=== PATIENT | male | born 1940 | race Caucasian/White ===

== ENCOUNTER 2018-09-08 17:24 | Emergency (ER) | payer OTHER ==
[~2018-09-08] VITALS: Ht 175.3 cm; Wt 83.5 kg
[2018-09-08] MEDS ORDERED: VITAMIN D1000 UNI1 PO (17:54)
[2018-09-08] MEDS ORDERED: ASPIR 8181 MG PO (17:54)
[2018-09-08] MEDS ORDERED: IBUPROFEN 600600 M1 PO (17:55)
[2018-09-08] MEDS ORDERED: TYLENOL EXTRA500 MG PO (17:55)
[2018-09-08 22:00] VITALS: BP 145/86
== END 2018-09-08 22:26 | disposition home or self-care (01) ==
LOC: ER 17:24
DX: S01.81XA Laceration without foreign body of other part of head, initial encounter (principal); W01.0XXA Fall on same level from slipping, tripping and stumbling without subsequent striking against object, initial encounter; Y93.89 Activity, other specified; Y92.89 Other specified places as the place of occurrence of the external cause; Y99.8 Other external cause status

== ENCOUNTER 2019-02-10 07:46 | Emergency (ER) | payer OTHER ==
[~2019-02-10] VITALS: Ht 170.2 cm; Wt 77.1 kg
[~2019-02-10 07:46] MED LIST: ASPIR 8181 MG PO; IBUPROFEN 600600 M1 PO; TYLENOL EXTRA500 MG PO; VITAMIN D1000 UNI1 PO
[2019-02-10 08:57] VITALS: BP 99/69
== END 2019-02-10 09:14 | disposition home or self-care (01) ==
LOC: ER 07:46
DX: S01.112A Laceration without foreign body of left eyelid and periocular area, initial encounter (principal); S61.412A Laceration without foreign body of left hand, initial encounter; S09.8XXA Other specified injuries of head, initial encounter; W01.0XXA Fall on same level from slipping, tripping and stumbling without subsequent striking against object, initial encounter; Y93.01 Activity, walking, marching and hiking; Y92.89 Other specified places as the place of occurrence of the external cause; Y99.8 Other external cause status

== ENCOUNTER 2019-09-29 11:06 | Emergency (ER) | payer OTHER ==
[~2019-09-29] VITALS: Ht 172.7 cm; Wt 74.8 kg
[2019-09-29 12:00] LABS: ABSOLUTE NEUTROPHILS 5.6 thou/uL (1.4-8.2); BASOPHILS 1.4 % (0.0-2.0); EOSINOPHILS 1.2 % (0.0-3.0); HEMOGLOBIN 12.7 gm/dL (14.0-18.0); LYMPHOCYTES 16.1 % (24.0-44.0); MCH 35.5 pg (26.0-34.0); MCHC 34.2 g/dL (28.0-37.0); MCV 103.8 fL (80.0-100.0); MONOCYTES 8.6 % (1.0-8.0); PLATELET COUNT 286 thou/uL (150-400); POLYS 72.7 % (36.0-66.0); RBC 3.56 mil/uL (4.50-6.00); RDW 14.2 % (10.5-14.5); WBC 7.8 thou/uL (4.0-11.0)
[2019-09-29 12:07] LABS: ANION GAP 6 mmol/L (7-16); BUN 10 mg/dL (7-18); CALCIUM 8.7 mg/dL (8.5-10.1); CHLORIDE 101 mmol/L (98-107); CO2 28 mmol/L (21-32); GLUCOSE 97 mg/dL (74-106); POTASSIUM 3.8 mmol/L (3.5-5.1); SODIUM 135 mmol/L (136-145)
[2019-09-29 12:16] LABS: MAGNESIUM 1.8 mg/dL (1.8-2.4); TROPONIN-I <0.06 ng/mL (<0.06)
[2019-09-29 13:22] LABS: URINE BILIRUBIN NEGATIVE (Negative); URINE BLOOD NEGATIVE (Negative); URINE CLARITY CLEAR; URINE COLOR YELLOW; URINE GLUCOSE-RANDOM* NEGATIVE (Negative); URINE KETONES NEGATIVE (Negative); URINE LEUKOCYTES-REFLEX NEGATIVE (Negative); URINE NITRITE-REFLEX NEGATIVE (Negative); URINE PROTEIN (DIPSTICK) NEGATIVE (Negative); URINE SPECIFIC GRAVITY 1.015 (1.005-1.035); URINE UROBILINOGEN 0.2 E.U./dl (0.2-1.0)
--- NOTE | 2019-09-29 14:06 | EKG ---
[facility] [place] [address] ELECTROCARDIOGRAM REPORT Name: HONEY MAST Room #: REG M..#: [id number] Admission: 09/29/19 Attend Phys: Discharge: Date of : 44 Report #: [id number] THIS REPORT FOR: cc: Feroz Kay MD, Shyam MD Couchonnal, Luis F. MD ~ THIS REPORT FOR: //name// [facility] ED Test Date: 2019-09-29 Test Time: 11:31:50 Pat Name: HONEY MAST Department: Room: Gender: Dual Rate Dealer: : 1940 Requested By: Jean Marie Coats Order Number: [id number] MD: Levi Cifuentes Measurements Intervals [place] Rate: 95 P: -2 SC: 133 QRS: 24 QRSD: 93 T: 20 QT: 358 QTc: 450 Interpretive Statements Sinus rhythm Borderline T wave abnormalities Baseline wander in lead(s) V4 No previous ECG available for comparison Electronically Signed On 09-29-2019 14:05:36 CDT by Levi Cifuentes [email or web address] <ELECTRONICALLY SIGNED> By: Levi Cifuentes MD 09/29/19 1405 1131 113 Levi Cifuentes MD /SANGEETA
[2019-09-29 14:45] VITALS: BP 120/75
== END 2019-09-29 14:45 | disposition home or self-care (01) ==
LOC: ER 11:06
PROVIDERS: Emergency Medicine
DX: F03.90 Unspecified dementia, unspecified severity, without behavioral disturbance, psychotic disturbance, mood disturbance, and anxiety (principal); E03.9 Hypothyroidism, unspecified; Z79.899 Other long term (current) drug therapy; W18.39XA Other fall on same level, initial encounter; Y93.89 Activity, other specified; Y92.89 Other specified places as the place of occurrence of the external cause; Y99.8 Other external cause status

== ENCOUNTER 2020-07-03 08:57 | Inpatient (IN) | payer OTHER, MEDICAID ==
[~2020-07-03] VITALS: Ht 175.3 cm; Wt 77.1 kg
--- NOTE | ~2020-07-03 | EMS ---
[address] [address] EMS Patient Care Report Name: HONEY MAST Room #: PRE FANY Poole#: [id number] Admission: Attend Phys: Discharge: Date of : 42 Report #: [id number] THIS REPORT FOR: //name// Report Transmitted: 07/03/2020 08:34 EMS Care Summary [facility] MED-ACT Incident [id number] @ 07/03/2020 08:09 Incident Location [address] [place] [address] Patient HONEY MAST Male, 79 Years 1940 Patient Address [address] [place] [address] Patient History Dementia,Hyperlipidemia,Alcohol Abuse,Hypothyroidism, Patient Allergies No known allergies, Patient Medications Nystatin, Acetaminophen, Aspirin, Ibuprofen, Chief Complaint He fell and hit his head Disposition Transported No Lights/[place] Dispatch Reason Falls Transported To [facility] Narrative M1149 dispatched to a rehab facility for a C2 fall. Pt was found laying supine on the floor. S47 on scene. [address] [address] EMS Patient Care Report Name: HONEY MAST Room #: PRE ER M.Layla.#: [id number] Admission: Attend Phys: Discharge: Date of : 42 Report #: [id number] Staff stated that the pt has had two unwitnessed falls this morning. Staff stated that the pt is normally able to ambulate with out difficulty. They have noted a general decline in the pt's status over the past week and have noted that he has been becoming weaker. Pt stated that he got up this morning to use the restroom and fell to the floor, hitting his forehead on the ground. Pt denied any loss of consciousness and does not take any blood thinners. Pt's roommate stated that he woke up around 0700 this morning and found the pt on the floor. S47 arrived on scene prior to us and stated that the pt had an approx 4 inch laceration in the middle of his forehead. Pt's head was bandaged prior to our arrival. Pt was alert and oriented x 3 and stated that he remembers the fall. Pt was lifted and moved to the cot. pt was transported non emergent to [facility]. Initial Vitals @08:30P: 116,R: 20,Pain: 0/10,GCS: 15,Temp: 97F,Glucose: 106,SpO2: 95,Revised Trauma: 12, @08:42P: 112,R: 20,BP: 90/62,GCS: 15,SpO2: 94,Revised Trauma: 12, Assessments @08:42MENTAL:Person Oriented,Time Oriented,Place Oriented,Event Oriented,SKIN:HEENT:Head/Face: No Abnormalities,Neck/Airway: No Abnormalities,LUNG SOUNDS:General: No Abnormalities,ABDOMEN:General: No Abnormalities,PELVIS//GI:No Abnormalities,EXTREMITIES:Left Arm: No Abnormalities,Right Arm: No Abnormalities,Left Leg: No Abnormalities,Right Leg: No Abnormalities,PULSE:NEURO:Weakness Left-Sided,Weakness Right-Sided, Impression Injury of Head Procedures @08:29Surgical Mask on PatientResponse: Unchanged Timeline 08:07,Call Received 08:07,Psap Call 08:09,Dispatched 08:11,En Route 08:19,On Scene 08:22,At Patient 08:29,Surgical Mask on Patient,Response: Unchanged 08:30,BP: 112/ M,PULSE: 116,RR: 20 R,SPO2: 95 Ox,ETCO2: ,B,PAIN: 0,GCS: 15, 08:35,Depart Scene 08:42,BP: 90/62 M,PULSE: 112,RR: 20 R,SPO2: 94 Ox,ETCO2: ,BG: ,PAIN: ,GCS: 15, 08:44,At Destination [facility] [address] [place] [address] EMS Patient Care Report Name: HONEY MAST Room #: PRE ER M.R.#: [id number] Admission: Attend Phys: Discharge: Date of : 42 Report #: [id number] 09:02,Call Closed Disclaimer v1.1 Copyright 2020 [employer] This EMS Care Summary contains data elements from the applicable legal record (which may be displayed differently). It is designed to provide pertinent information for the following purposes: continuity of care, clinical quality, and state data reporting. The complete legal record is available to ED staff and administrators of the receiving hospital in 5 CUPS and some sugar's Patient Tracker. All data is provided "as is."
[2020-07-03 08:57] VITALS: BP 90/62
[2020-07-03 09:29] LABS: HEMATOCRIT 47.3 % (42.0-52.0); HEMOGLOBIN 15.6 gm/dL (14.0-18.0); MCHC 32.9 g/dL (28.0-37.0); MCV 103.5 fL (80.0-100.0); PLATELET COUNT 510 thou/uL (150-400); RBC 4.57 mil/uL (4.50-6.00); RDW 14.4 % (10.5-14.5); WBC 28.1 thou/uL (4.0-11.0)
--- NOTE | 2020-07-03 09:34 | EKG ---
[address] [address] ELECTROCARDIOGRAM REPORT Name: HONEY MAST Room #: PRE M.R.#: [id number] Admission: Attend Phys: Discharge: Date of : 42 Report #: [id number] [facility] ED Test Date: 2020-07-03 Test Time: 09:03:58 Pat Name: HONEY MAST Department: Room: Gender: Help Desk Analyst: litzy bourne : 1940 Requested By: Shaq Ling Order Number: [id number] MD: Levi Cifuentes Measurements Intervals [place] Rate: 122 P: -21 AL: 100 QRS: 62 QRSD: 96 T: 32 QT: 321 QTc: 458 Interpretive Statements Sinus tachycardia Probable left atrial enlargement Compared to ECG 09/29/2019 11:31:50 Electronically Signed On 07-03-2020 9:34:02 WALLPAPER HANGER HELPER by Levi Cifuentes [email or web address] <ELECTRONICALLY SIGNED> By: Levi Cifuentes MD 07/03/2034 2 2 Levi Cifuentes MD /EPI
[2020-07-03 09:41] LABS: ANION GAP 24 mmol/L (7-16); BUN 161 mg/dL (7-18); CALCIUM 10.6 mg/dL (8.5-10.1); CHLORIDE 105 mmol/L (98-107); CO2 15 mmol/L (21-32); CREATININE 10.1 mg/dL (0.7-1.3); GLUCOSE 169 mg/dL (74-106); POTASSIUM 4.7 mmol/L (3.5-5.1); SODIUM 144 mmol/L (136-145)
[2020-07-03 09:48] LABS: ALBUMIN 4.5 g/dL (3.4-5.0); DIRECT BILIRUBIN 0.2 mg/dL (<0.1-0.2); LIPASE 568 U/L (73-393); SGOT 33 U/L (15-37); SGPT 37 U/L (16-63); TOTAL PROTEIN 10.2 g/dL (6.4-8.2); TROPONIN-I <0.06 ng/mL (<0.06)
[2020-07-03] MEDS ORDERED: NYSTATIN15 G2 TOP (09:52)
[2020-07-03 09:56] LABS: URINE BILIRUBIN NEGATIVE (Negative); URINE BLOOD 3+ (Negative); URINE CLARITY TURBID; URINE COLOR YELLOW; URINE GLUCOSE-RANDOM* NEGATIVE (Negative); URINE KETONES NEGATIVE (Negative); URINE LEUKOCYTES-REFLEX 3+ (Negative); URINE NITRITE-REFLEX NEGATIVE (Negative); URINE PROTEIN (DIPSTICK) 3+ (Negative); URINE SPECIFIC GRAVITY 1.025 (1.005-1.035); URINE UROBILINOGEN 0.2 E.U./dl (0.2-1.0)
[2020-07-03 09:58] LABS: CASTS None Seen /LPF (None Seen); SQUAMOUS 0-3 Few /LPF (0-3); URINE WBC-REFLEX >25 Many /HPF (0-5)
[2020-07-03 09:59] LABS: BACTERIA-REFLEX >30 Many /HPF (None Seen); CRYSTALS None Seen /LPF (None Seen); WBC CLUMPS Packed (None Seen)
[2020-07-03 10:20] LABS: ABSOLUTE NEUTROPHILS 22.8 thou/uL (1.4-8.2)
[2020-07-03 10:23] LABS: ANISOCYTOSIS 1+; MACROCYTES 1+
--- NOTE | 2020-07-03 17:30 | NUR ---
DPOA SISTER MADE AWARE OF PT'S STAY IN ED AND PLAN OF CARE.
[2020-07-04 05:56] LABS: MCH 33.4 pg (26.0-34.0); MCHC 32.8 g/dL (28.0-37.0); MCV 101.6 fL (80.0-100.0); RBC 3.93 mil/uL (4.50-6.00); RDW 14.1 % (10.5-14.5); WBC 23.7 thou/uL (4.0-11.0)
[2020-07-04 06:03] LABS: HEMOGLOBIN 13.1 gm/dL (14.0-18.0)
[2020-07-04 06:16] LABS: CREATININE 7.6 mg/dL (0.7-1.3)
[2020-07-04 10:00] VITALS: BP 102/62
--- NOTE | 2020-07-04 16:47 | NUR ---
79-year-old male who is in assisted living facility with a roommate who was found down this morning after a fall. The nursing facility staff states that the patient has had increasing weakness over the last week decreased oral intake and appetite but no other complaints. He is actually fallen twice and now sustained a very large head laceration. His sister's Graciela Main states she is the DPOA and her number is [phone] and cell is [phone]: NOTE THIS NUMBER DOES NOT BELONG TO GRACIELA DARIUS. The correct number is [phone]. Patient was living at [facility] in [place]. Workup there showed a creatinine of 10.1, WBC count of 28K and evidence of a UTI. Per renal DARIEN is most likely from UTI with metabolic acidosis. Plan will be patient to return [facility] at discharge per his sister. CM will continue to follow for discharge needs.
[2020-07-04 22:59] VITALS: BP 99/55
[2020-07-05] VITALS (9 sets, daily range): BP systolic 100–155; BP diastolic 54–69
--- NOTE | 2020-07-05 00:19 | NUR ---
HANDOFF SENT TO Cathy
--- NOTE | 2020-07-05 07:06 | NUR ---
RECEIVED REPORT FROM ED RN.PATIENT ARRIVED TO ROOM 205 AROUND 2300.PATIENT ALERT,CONFUSED,WILL NOT TALK AT THIS TIME,LACERATION NOTED ON FOREHEAD.CHRISTOPHER TO DD.MONITOR SHOWS SINUS ARRYTHMIA.POC CONTINUED.
[2020-07-05 10:05] LABS: CALCIUM 8.6 mg/dL (8.5-10.1); PHOSPHORUS 3.7 mg/dL (2.6-4.7); POTASSIUM 3.4 mmol/L (3.5-5.1)
[2020-07-05 10:14] LABS: ABSOLUTE NEUTROPHILS 9.9 thou/uL (1.4-8.2); BASOPHILS 0.1 % (0.0-2.0); EOSINOPHILS 0.5 % (0.0-3.0); HEMATOCRIT 35.9 % (42.0-52.0); HEMOGLOBIN 11.8 gm/dL (14.0-18.0); LYMPHOCYTES 13.3 % (24.0-44.0); MCH 33.5 pg (26.0-34.0); MCHC 32.8 g/dL (28.0-37.0); MONOCYTES 7.4 % (1.0-8.0); POLYS 78.7 % (36.0-66.0); RBC 3.52 mil/uL (4.50-6.00); WBC 12.6 thou/uL (4.0-11.0)
[2020-07-05 10:19] LABS: PLATELET COUNT 239 thou/uL (150-400)
[2020-07-05 12:23] LABS: URINE CREATININE-RANDOM* 128.3 mg/dL
[2020-07-05 12:36] LABS: PROT/CREAT RATIO 6.1; URINE PROTEIN-RANDOM* 786.2 mg/dL (<11.9)
--- NOTE | 2020-07-05 13:22 | NUR ---
FAXED CLINICAL UPDATE TO [facility] RECEIVED CONFIRMATION AND LEFT MSG WITH ODALIS IN ADM.
--- NOTE | 2020-07-05 13:43 | NUR ---
Met with patient who admits from [facility]. Patient just nods to yes/no questions. Patient admits due to weakness and falls. Patient resides in ltc at [facility]. Sp with sister, reviewed role of casemgt. Plan return once stable. Updated facility.
--- NOTE | 2020-07-05 16:48 | NUR ---
RN ASSUMED PT'S CARE AT 0700AM, PT IS UNVERBAL , ST HAS SP CONSULT, BUT PT CAN FOLLOW COMMANDS, PT HAS POOR EATING WITH ASSIST, PT IS CONTINUING IV FLUID AND IV ABX, PT HAS MEW CERVICAL COLLAR FOR NECK FX, PT'S VS ARE STABLE, PT DENIES PAIN AND SOB BY THIS TIME.
[2020-07-06 04:36] VITALS: BP 102/55
[2020-07-06 05:21] LABS: HEMATOCRIT 32.1 % (42.0-52.0); HEMOGLOBIN 10.7 gm/dL (14.0-18.0); MCHC 33.3 g/dL (28.0-37.0); MCV 102.3 fL (80.0-100.0); RBC 3.13 mil/uL (4.50-6.00); RDW 13.9 % (10.5-14.5); WBC 10.3 thou/uL (4.0-11.0)
[2020-07-06 05:35] LABS: ALBUMIN 2.7 g/dL (3.4-5.0); CALCIUM 8.1 mg/dL (8.5-10.1); PHOSPHORUS 2.6 mg/dL (2.5-4.9); POTASSIUM 3.4 mmol/L (3.5-5.1)
[2020-07-06 06:02] LABS: CREATININE 2.4 mg/dL (0.7-1.3)
[2020-07-06 07:40] VITALS: BP 103/55
[2020-07-06 09:08] LABS: FOLIC ACID 3.1 ng/mL (8.6-58.9)
[2020-07-06 11:14] VITALS: BP 97/57
--- NOTE | 2020-07-06 11:33 | NUR ---
Assess due to clear liquid diet x 3 days. Admit with sepsis, UTI, Acute renal failure which is improving. Currently on D5 fluids. ST assessed today per RN and appeared to do well. Recommend diet advance. Wts are stable since Jan 2019 at 170 lb. Needs folate replaced (3.1). Otherwise low nutrition risk.
--- NOTE | 2020-07-06 11:35 | NUR ---
Recommend folate supplementation for 3.1. RN to discuss diet advance past clear liquids with physician.
--- NOTE | 2020-07-06 14:09 | NUR ---
faxed updates to [facility] for review.
[2020-07-06 16:24] VITALS: BP 109/64
[2020-07-06 19:47] VITALS: BP 106/66
--- NOTE | 2020-07-06 20:46 | NUR ---
assessment as charted - meds as per aug -pt advanced to full liquid diet this shift - meera well ordered reg diet for am - verbal order to advance as tolerated. pt given iv K+ as ordered. pt up to the chair tis am then again this evening meera well - pt confused and trying to get out of bed at times - bed alarm insitu. seen by therapy today - resting quietly at the present time.
[2020-07-07 03:35] VITALS: BP 136/77
[2020-07-07 05:42] LABS: ALBUMIN 2.6 g/dL (3.4-5.0); CALCIUM 8.5 mg/dL (8.5-10.1); CREATININE 1.6 mg/dL (0.7-1.3); PHOSPHORUS 1.9 mg/dL (2.5-4.9); POTASSIUM 3.9 mmol/L (3.5-5.1)
[2020-07-07 08:14] VITALS: BP 101/55
[2020-07-07 11:34] VITALS: BP 88/54
--- NOTE | 2020-07-07 12:16 | NUR ---
ASSUMED CARE OF PATIENT AT 0645 PT ALERT XS 1-2 MOD ASSIST WITH TRANSFERS AND ADLS. CHRISTOPHER CATH TO D/D HAS C- COLLAR BUT TAKES OFF. GIVEN PRN PAIN MED TAKES MEDS PO.
[2020-07-07 15:28] VITALS: BP 88/55
[2020-07-07 17:31] VITALS: BP 112/61
[2020-07-07 21:37] VITALS: BP 120/81
--- NOTE | 2020-07-08 02:01 | NUR ---
PT AOX1, TO PERSON AND CONDUSED. PT NOTED TO BE LETHARGIC UPON SHIFT ASSESSMENT. PT COOPERATIVE WITH PLAN OF CARE. PT DENIES PAIN. PT REPORTS SOB AT REST AND WITH EXERTION. 1.0L O2 APPLIED VIA NC, PT REPORTS IMMEDIATE RELIEF. PT TOLERATING PO INTAKE OF THIN FLUIDS AND REGULAR DIET WITHOUT ISSUE. PT DENIES NAUSEA. CHRISTOPHER REMAINS PATENT AND FUNCTIONING PROPERLY. PT AMBULATING WITH X1 ASSIST BETWEEN BED AND CHAIR. PT ENCOURAGED TO NOTIFY STAFF FOR ALL NEEDS, CALL LIGHT WITHIN REACH, BED/CHAIR ALARMS ON, BED LOCKED IN LOWEST POSITION, ROOM REMAINS NEAR NURSES STATION, FREQUENT MONITORING WILL CONTINUE.
[2020-07-08 04:54] VITALS: BP 124/61
[2020-07-08 05:37] LABS: ALBUMIN 2.4 g/dL (3.4-5.0); CALCIUM 8.4 mg/dL (8.5-10.1); CREATININE 1.3 mg/dL (0.7-1.3); PHOSPHORUS 2.2 mg/dL (2.5-4.9); POTASSIUM 3.6 mmol/L (3.5-5.1)
[2020-07-08 07:35] VITALS: BP 106/51
[2020-07-08 11:20] VITALS: BP 101/61
--- NOTE | 2020-07-08 11:30 | NUR ---
Pt dcing back to [facility] today. DC program planner to fax orders and confirm dc time/w/c van pickup with all parties including his sister. Cyn in admissions at [facility] is aware of above and will coordinate w/c van once dc orders are faxed. Pt will be skilled for therapies before transitioning back to LTC there.
[2020-07-08] MEDS ORDERED: FOLIC ACID1 MG PO (11:35)
--- NOTE | 2020-07-08 13:45 | NUR ---
PT DISCHARGING TODAY TO [facility] FAXED DC ORDERS/SUMMARY TO FACILITY SPOKE WITH ODALIS IN ADM SHE RECEIVED ORDERS AND ARRANGED TRANSPORT BY VAN FOR 5:00-5:30 TODAY. LEFT MSG WITH PT'S SISTER (GRACIELA) OF DC AND TIME OF TRANSPORT. UNIT NOTIFIED AND CHART COPY PER US. RN TO CALL REPORT TO [phone].
[2020-07-08 15:35] VITALS: BP 124/68
--- NOTE | 2020-07-08 16:19 | NUR ---
RECEIVED PT'S CARE AROUND 0720; PT. ON BED RESTING WITH EYES; EQUAL CHEST RISING; SR ON THE MONITOR; DURING AM ASSESSMENT PT. ALERT TO PERSON AND SITUATION; NO C/O PAIN; DURING BREAKFAST PT. COUGH AFTER DRINKING SOME WATER; ST NOTIFIED; ORDERS ON PLACED; UP TO THE CHAIR; AROUND 1130 PT. GETTING UP FROM BED WITHOUT CALLING FOR HELP; PULLED IV OUT; MEDICATION INFUSING; PHYSICIAN NOTIFIED; PO MEDICATION ORDER; SISTER UPDATED ABOUT PT'S HEALTH AND POC; ST. UNDERSTANDING; ASHWIN PULLED OUT AT 1200; MONITORING; ASSESSMENT CHARGED; FOLLOWING POC; WILL CALL FOR REPORT; WILL WORK ON D/C ORDERS;
[2020-07-08] MEDS ORDERED: FLOMAX0.4 MG PO (17:14)
== END 2020-07-08 17:35 | DRG 853 ==
LOC: ER 08:57 → EROBS 12:13 → 2N 12:13 → EROBS 07-04 19:00 → 2N 07-05 00:47
PROVIDERS: Emergency Medicine; Hospitalist; Internal Medicine; Internal Medicine Nephrology; ADMIT Hospitalist; ATTEND Hospitalist
PROC: 0KQ00ZZ Repair Head Muscle, Open Approach (ICD-10-PCS; principal; 2020-07-03)
DX: A41.9 Sepsis, unspecified organism (principal); N17.0 Acute kidney failure with tubular necrosis; G93.41 Metabolic encephalopathy; S12.400A Unspecified displaced fracture of fifth cervical vertebra, initial encounter for closed fracture; N30.01 Acute cystitis with hematuria; E87.0 Hyperosmolality and hypernatremia; E03.9 Hypothyroidism, unspecified; B96.4 Proteus (mirabilis) (morganii) as the cause of diseases classified elsewhere; D53.9 Nutritional anemia, unspecified; S01.01XA Laceration without foreign body of scalp, initial encounter; E86.0 Dehydration; X58.XXXA Exposure to other specified factors, initial encounter; Y93.89 Activity, other specified; Y92.89 Other specified places as the place of occurrence of the external cause; Y99.8 Other external cause status; Z79.82 Long term (current) use of aspirin; Z79.899 Other long term (current) drug therapy; Z79.1 Long term (current) use of non-steroidal anti-inflammatories (NSAID); W18.39XA Other fall on same level, initial encounter
CPT/HCPCS: 10081

== ENCOUNTER 2020-08-17 10:35 | Inpatient (IN) | payer OTHER, MEDICAID ==
[~2020-08-17] VITALS: Ht 170.2 cm; Wt 74.4 kg
--- NOTE | ~2020-08-17 | EMS ---
[address] [address] EMS Patient Care Report Name: HONEY MAST Room #: 201-P ADM IN M.R.#: [id number] Admission: 08/17/20 Attend Phys: Sirisha Payne MD Discharge: Date of : 42 Report #: [id number] THIS REPORT FOR: //name// Report Transmitted: 08/17/2020 15:23 EMS Care Summary [facility] MED-ACT Incident [id number] @ 08/17/2020 09:55 Incident Location [address] [place] [address] Patient HONEY MAST Male, 79 Years 1940 Patient Address [address] [place] [address] Patient History Dementia,Kidney/Renal Failure,Hyperlipidemia,Urinary Tract Infection (UTI),Sepsis,Alcohol Abuse,Hypothyroidism, Patient Allergies No known allergies, Patient Medications Ibuprofen, Acetaminophen, Aspirin, Nystatin, Chief Complaint Burning with urination Disposition Transported No Lights/[place] Dispatch Reason Sick Person Transported To [facility] Narrative M1144 dispatched C1 to [facility] for sick/ill. [address] [address] EMS Patient Care Report Name: HONEY MAST Room #: 201-P ADM IN M.R.#: [id number] Admission: 08/17/20 Attend Phys: Sirisha Payne MD Discharge: Date of : 42 Report #: [id number] Upon arrival pt found lying on his right side in bed, responsive, breathing nonlabored, tended to by non transporting first responders. Pt initially denies any complaints but then states that he has had burning with urination for the past month. Staff states that the pt spiked a fever today and has low blood pressure. Pt denies any new pain, SOA, cough, sore throat, dizziness, weakness. Pt states that he had the 2 nd covid vaccine shot 1 month prior. Pt lifted onto cot by crew. Pt vitals and condition monitored enroute. Pt blood pressure improved with 400 mL Normal Saline. Pt care transferred room 11 in ER. Initial Vitals @10:25P: 109,R: 18,BP: 103/63,Pain: 0/10,GCS: 14,SpO2: 100,Revised Trauma: 12, @10:17P: 110,R: 18,BP: 92/56,Pain: 0/10,GCS: 14,SpO2: 98,Revised Trauma: 12, @10:15P: 111,R: 18,BP: 97/61,Pain: 0/10,GCS: 14,Temp: 100.5F,SpO2: 97,Revised Trauma: 12, @10:29P: 110,R: 18,BP: 94/52,Pain: 0/10,GCS: 14,SpO2: 99,Revised Trauma: 12, Assessments @10:07MENTAL:Confused,Person Oriented,Place Oriented,Event Oriented,SKIN:Hot,HEENT:LUNG SOUNDS:ABDOMEN:PELVIS//GI:Pelvis GUOther,EXTREMITIES:Left Arm: No Abnormalities,Right Arm: No Abnormalities,Left Leg: No Abnormalities,Right Leg: No Abnormalities,PULSE:NEURO:No Abnormalities, Impression Urinary Tract Infection (UTI) Procedures @10:07Saline Lock 10cc (18 ga) Site: Hand-LeftResponse: ImprovedSucceeded@10:18Surgical Mask on PatientResponse: Unchanged@10:22Saline - 400 Milliliters (ml) - Intravenous (IV)Response: Unchanged Timeline 09:53,Call Received 09:53,Psap Call 09:55,Dispatched 09:56,En Route 10:04,On Scene 10:06,At Patient 10:07,Saline Lock 10cc 18 ga Site: Hand-Left,Response: ImprovedSucceeded, 10:15,BP: 97/61 M,PULSE: 111,RR: 18 R,SPO2: 97 Ox,ETCO2: ,BG: ,PAIN: 0,GCS: 14, 10:17,BP: 92/56 M,PULSE: 110,RR: 18 R,SPO2: 98 Ox,ETCO2: ,BG: ,PAIN: 0,GCS: 14, 10:18,Surgical Mask on Patient,Response: Unchanged 10:22,Saline - 400 Milliliters (ml) - Intravenous (IV),Response: Unchanged 10:22,Depart Scene [address] [address] EMS Patient Care Report Name: HONEY MAST Room #: 201-P ADM IN M.R.#: [id number] Admission: 08/17/20 Attend Phys: Sirisha Payne MD Discharge: Date of : 44 Report #: [id number] 10:25,BP: 103/63 M,PULSE: 109,RR: 18 R,SPO2: 100 Ox,ETCO2: ,BG: ,PAIN: 0,GCS: 14, 10:29,BP: 94/52 M,PULSE: 110,RR: 18 R,SPO2: 99 Ox,ETCO2: ,BG: ,PAIN: 0,GCS: 14, 10:30,At Destination 10:44,Call Closed Disclaimer v1.1 Copyright 2020 [employer] This EMS Care Summary contains data elements from the applicable legal record (which may be displayed differently). It is designed to provide pertinent information for the following purposes: continuity of care, clinical quality, and state data reporting. The complete legal record is available to ED staff and administrators of the receiving hospital in [facility]'s Patient Tracker. All data is provided "as is."
[~2020-08-17 10:35] MED LIST changes: +FLOMAX0.4 MG PO; +FOLIC ACID1 MG PO; +NYSTATIN15 G2 TOP
[2020-08-17 10:36] VITALS: BP 87/57
--- NOTE | 2020-08-17 11:08 | NUR ---
WARM BLANKET GIVEN
[2020-08-17 11:18] LABS: HEMATOCRIT 25.8 % (42.0-52.0); HEMOGLOBIN 8.4 gm/dL (14.0-18.0); MCH 33.5 pg (26.0-34.0); MCHC 32.7 g/dL (28.0-37.0); MCV 102.3 fL (80.0-100.0); PLATELET COUNT 306 thou/uL (150-400); RBC 2.52 mil/uL (4.50-6.00); RDW 15.7 % (10.5-14.5)
[2020-08-17 11:39] LABS: URINE BILIRUBIN NEGATIVE (Negative); URINE BLOOD 2+ (Negative); URINE COLOR YELLOW; URINE GLUCOSE-RANDOM* NEGATIVE (Negative); URINE KETONES NEGATIVE (Negative); URINE NITRITE-REFLEX NEGATIVE (Negative); URINE PROTEIN (DIPSTICK) 2+ (Negative); URINE SPECIFIC GRAVITY 1.015 (1.005-1.035); URINE UROBILINOGEN 0.2 E.U./dl (0.2-1.0)
[2020-08-17 11:41] LABS: URINE CLARITY CLOUDY; URINE LEUKOCYTES-REFLEX 3+ (Negative)
[2020-08-17 11:44] LABS: ANION GAP 13 mmol/L (7-16); BUN 44 mg/dL (7-18); CALCIUM 8.4 mg/dL (8.5-10.1); CHLORIDE 96 mmol/L (98-107); CO2 20 mmol/L (21-32); CREATININE 3.4 mg/dL (0.7-1.3); GLUCOSE 122 mg/dL (74-106); POTASSIUM 4.3 mmol/L (3.5-5.1); SODIUM 129 mmol/L (136-145)
[2020-08-17 11:49] LABS: ALBUMIN 2.1 g/dL (3.4-5.0); SGOT 23 U/L (15-37); SGPT 14 U/L (30-65); TOTAL BILIRUBIN 0.3 mg/dL (0.2-1.0); TOTAL PROTEIN 6.6 g/dL (6.4-8.2); TROPONIN-I <0.06 ng/mL (<0.06)
[2020-08-17 11:52] LABS: BACTERIA-REFLEX >30 Many /HPF (None Seen); CASTS None Seen /LPF (None Seen); CRYSTALS None Seen /LPF (None Seen); SQUAMOUS 0-3 Few /LPF (0-3); URINE RBC 0-2 Rare /HPF (0-2); URINE WBC-REFLEX >25 Many /HPF (0-5); WBC CLUMPS Packed (None Seen)
[2020-08-17 12:36] LABS: METAMYELOCYTES 2 %
[2020-08-17 12:37] LABS: ANISOCYTOSIS SLIGHT; POIKILOCYTOSIS SLIGHT
--- NOTE | 2020-08-17 12:49 | EKG ---
[facility] [address] [place] [address] ELECTROCARDIOGRAM REPORT Name: HONEY MAST [id number] Admission: 08/17/20 Attend Phys: Discharge: Date of : 42 Report #: [id number] [facility] ED Test Date: 2020-08-17 Test Time: 11:07:15 Pat Name: HONEY MAST Department: Room: Gender: M Supervisor Fur Dressing: nathanael : 1940 Requested By: Ghazal Howell Order Number: [id number] MD: Mehrdad Abreu Measurements Intervals [place] Rate: 101 P: 57 [place]: 124 QRS: 36 QRSD: 92 T: 15 QT: 345 QTc: 448 Interpretive Statements Sinus tachycardia Atrial premature complexes in couplets Abnormal R-wave progression, early transition Borderline T wave abnormalities Compared to ECG 07/03/2020 09:03:58 Atrial premature complex(es) now present T-wave abnormality now present Electronically Signed On 08-17-2020 12:49:14 MANAGER FRONT by Mehrdad Abreu [email or web address] <ELECTRONICALLY SIGNED> By: Mehrdad Abreu MD, [facility] 08/17/20 1249 06 06 Mehrdad Abreu MD, FAC /EPI
[2020-08-17 14:57] VITALS: BP 127/72
[2020-08-17 15:30] VITALS: BP 121/57
[2020-08-17 16:06] VITALS: BP 100/36
--- NOTE | 2020-08-17 17:40 | NUR ---
assumed care of pt on arrival to unit at approx 1600. pt forgetful about recent events. poor historian. difficulty staying awake. quick burst of tachycardia on telemetry - lasting several seconds. patient reports feeling heart racing. says this has been occuring for months. hospitalist notified - cardio consulted. bolus given. catheter in place. HR remains 100-110's. blood pressure soft but stable. ns to cont infusing at 150cc/hr after bolus. wcm.
[2020-08-17 19:15] VITALS: BP 107/56
--- NOTE | 2020-08-17 23:31 | HC ---
[facility] [place] [address] CONSULTATION Name: HONEY MAST Room #: 201-P ADM IN M.R.#: [id number] Admission: 08/17/20 Attend Phys: Sirisha Payne MD Discharge: Date of : 42 Report #: [id number] THIS REPORT FOR: cc: Feroz Kay MD, Shyam MD Geha,Sukhdev Chisholm MD ~ DATE OF SERVICE: 08/17/2020 INFECTIOUS DISEASE CONSULTATION REASON FOR CONSULTATION: I was asked to evaluate concerning Gram-negative sepsis. HISTORY OF PRESENT ILLNESS: The patient is a 79-year-old who was admitted through the Emergency Room from centers of [facility]. He had a C5 fracture and was recuperating from this. He had a drop in his blood pressure and more confusion. Therefore, transferred to the Emergency Room, found to be hypotensive. No documented fever, chills or sweats. The patient was confused and a poor historian due to his underlying dementia and delirium. There has been no cough or sputum production. No chest pain. No nausea, vomiting or diarrhea. He has had some dysuria. Now has an indwelling Serrano catheter. REVIEW OF SYSTEMS: A 14-point review of system was negative other than what has been noted above. PAST MEDICAL HISTORY: Hypothyroidism, alcoholism, dementia, cervical spine fracture. ALLERGIES: None known. MEDICATIONS: As noted on his MAR, now on vancomycin and meropenem. FAMILY HISTORY: Noncontributory. SOCIAL HISTORY: Cigarette use. No current alcohol use. PHYSICAL EXAMINATION: VITAL SIGNS: Afebrile and hemodynamically stable. GENERAL: He was alert and cooperative, although confused. Had a cervical collar in place. HEENT: Eyes without scleral icterus. Mouth without mucositis. SKIN: Without decubitus. No rashes. No palpable adenopathy. CHEST: Clear. HEART: Regular, without murmur. [facility] [address] [place] [address] CONSULTATION Name: HONEY MAST Room #: 201-P [facility].#: [id number] Admission: 08/17/20 Attend Phys: Sirisha Payne MD Discharge: Date of : 42 Report #: [id number] ABDOMEN: Soft and nontender with no hepatosplenomegaly or mass. No CVA tenderness. No spinal tenderness. GENITOURINARY: External genitalia without mass or lesion. An indwelling Serrano catheter. RECTAL: Not performed. EXTREMITIES: Without clubbing, cyanosis or edema. Mood without anxiety. NEUROLOGIC: Cranial nerves intact. LABORATORY STUDIES: Reviewed. MICROBIOLOGY: Reviewed. IMAGING: Chest x-ray reviewed. Ultrasound of the abdomen reviewed. IMPRESSION: 1. A 79-year-old with gram-negative sepsis associated with urinary tract infection. He does have outlet obstructive issues, now with indwelling Serrano catheter. We would be concerned regarding healthcare-associated organisms. 2. Acute kidney injury. 3. Delirium, complicating underlying dementia. 4. Cervical spine fracture. RECOMMENDATIONS: We will continue with meropenem, adjusted for his renal failure. Await blood and urine culture results. Follow serial laboratory studies and make adjustments with his antibiotics accordingly. The patient will continue with indwelling Serrano catheter at this point. <ELECTRONICALLY SIGNED> By: Sukhdev Daniel MD 08/17/20 2331 2301 2310 Sukhdev Daniel MD /nt
[2020-08-18 03:32] VITALS: BP 137/74
[2020-08-18 03:48] LABS: HEMATOCRIT 24.6 % (42.0-52.0); HEMOGLOBIN 8.2 gm/dL (14.0-18.0); MCH 34.3 pg (26.0-34.0); MCHC 33.4 g/dL (28.0-37.0); MCV 102.7 fL (80.0-100.0); RBC 2.4 mil/uL (4.50-6.00); RDW 15.9 % (10.5-14.5); WBC 34.3 thou/uL (4.0-11.0)
[2020-08-18 04:32] LABS: CALCIUM 7.7 mg/dL (8.5-10.1); CREATININE 2.9 mg/dL (0.7-1.3); POTASSIUM 4.5 mmol/L (3.5-5.1)
--- NOTE | 2020-08-18 07:08 | EKG ---
[address] [place] [address] ELECTROCARDIOGRAM REPORT Name: HONEY MAST Room #: 201-P ADM IN M.R.#: [id number] Admission: 08/17/20 Attend Phys: Sirisha Payne MD Discharge: Date of : 44 Report #: [id number] [facility] Test Date: 2020-08-17 Test Time: 17:10:48 Pat Name: HONEY MAST Department: Room: 201 P Gender: M Delivery Driver/Supervisor: ramirez : 1940 Requested By: Sirisha Payne Order Number: [id number] MD: Mehrdad Abreu Measurements Intervals [place] Rate: 116 P: 50 PA: 129 QRS: 31 QRSD: 94 T: 42 QT: 312 QTc: 434 Interpretive Statements Sinus tachycardia Atrial premature complex Borderline low voltage, extremity leads Compared to ECG 08/17/2020 11:07:15 T-wave abnormality no longer present Electronically Signed On 08-18-2020 7:08:47 NEWS [employer]ERA PERSON by Mehrdad Abreu [email or web address] <ELECTRONICALLY SIGNED> By: Mehrdad Abreu MD, [facility] 08/18/2008 09 09 Mehrdad Abreu MD, FACC /EPI
[2020-08-18 08:53] VITALS: BP 131/75
--- NOTE | 2020-08-18 09:19 | 2DMMODE ---
[facility] [place] [address] 2 D/M-MODE ECHOCARDIOGRAM Name: HONEY MAST Room #: 201-P ADM IN M.R.#: [id number] Admission: 08/17/20 Attend Phys: Sirisha Payne MD Discharge: Date of : 44 Report #: [id number] THIS REPORT FOR: cc: Feroz Kay MD, Shyam MD Santiago, Patrick MD [facility] ~ APPROVED REPORT Study performed: 08/18/2020 08:01:16 EXAM: Comprehensive 2D, Doppler, and color-flow Echocardiogram Patient Location: Bedside Room #: 201 Status: routine BSA: 1.88 HR: 98 bpm BP: 137/74 mmHg Rhythm: Tachycardia/Irregular Other Information Study Quality: Adequate Technically limited study due to lung interference. Indications Hypotension, arrhythmia. Hx: HTN, HLP, tobacco abuse. 2D Dimensions RVDd: 33.15 mm IVSd: 8.90 (7-11mm) LVOT Diam: 20.55 (18-24mm) LVDd: 35.51 mm PWd: 9.14 (7-11mm) LVDs: 27.08 (25-40mm) Aortic Root: 38.17 mm Volumes Left Atrial Volume (Systole) Single Plane 4CH: 54.78 mL Single Plane 2CH: 58.81 mL LA ESV Index: 32.00 mL/m2 Aortic Valve AoV Peak Chidi.: 0.95 m/s AO Peak Gr.: 3.59 mmHg LVOT Max P.37 mmHg [facility] [address] [place] [address] 2 D/M-MODE ECHOCARDIOGRAM Name: HONEY MAST Room #: 201-P ADM IN M.R.#: [id number] Admission: 08/17/20 Attend Phys: Jenelle Hernandez Discharge: Date of : 44 Report #: [id number] LVOT Max V: 0.77 m/s ABIGAIL Vmax: 2.69 cm2 Mitral Valve E/A Ratio: 0.8 MV Decel. Time: 221.50 ms MV E Max Chidi.: 0.59 m/s MV A Chidi.: 0.77 m/s MV PHT: 64.23 ms IVRT: 96.89 ms Pulmonary Valve PV Peak Chidi.: 0.74 m/s PV Peak Gr.: 2.17 mmHg Tricuspid Valve TR Peak Chidi.: 3.03 m/s RAP Estimate: 10.00 mmHg TR Peak Gr.: 37.00 mmHg PA Pressure: 47.00 mmHg Left Ventricle The left ventricle is normal size. Mild basal septal hypertrophy is present. Left ventricular systolic function is normal. LVEF is 55%. Mild diastolic dysfunction is present (impaired relaxation pattern). Right Ventricle The right ventricle is normal size. The right ventricular systolic function is normal. Atria The left atrium size is normal. The right atrium size is normal. Aortic Valve The Aortic valve is sclerotic. Trace aortic regurgitation. There is no aortic valvular stenosis. Mitral Valve The mitral valve is normal in structure. Trace mitral regurgitation. Tricuspid Valve The tricuspid valve is normal in structure. Trace to mild tricuspid regurgitation. Estimated PAP is 47mmHg. Pulmonic Valve [facility] [address] [place] [address] 2 D/M-MODE ECHOCARDIOGRAM Name: HONEY MAST Room #: 201-P ADM IN ..#: [id number] Admission: 08/17/20 Attend Phys: Jenelle Hernandez Discharge: Date of : 44 Report #: [id number] The pulmonary valve is normal in structure. Trace pulmonic regurgitation. Great Vessels Aortic root is borderline dilated. Ascending aorta is not well visualized. IVC is dilated and collapses <50% with inspiration. Pericardium There is no pericardial effusion. <Conclusion> Normal left ventricular size with mild basal hypertrophy Ejection fraction 55% Normal right ventricular size/function Normal atrial size Mild aortic valve sclerosis Color-flow Doppler study was performed of the aortic/mitral/tricuspid/pulmonary valve Trace aortic/mitral valve insufficiency Mild tricuspid valve insufficiency PA pressure estimated 47 mmHg No pericardial effusion <ELECTRONICALLY SIGNED> By: Mehrdad Abreu MD, [facility] 08/18/20917 7 7 Mehrdad Abreu MD, FACC /INF
[2020-08-18 11:18] VITALS: BP 128/55
--- NOTE | 2020-08-18 13:38 | NUR ---
INITIAL ASSESSMENT: DONNA reviewed chart and spoke with nursing. Pt was admitted from [facility] due to UTI/sepsis. Pt is on IV abx. Pt to have CT of his abdomen today. Cardiology, ID and urology consulted. DONNA spoke with Irina, in admissions at [facility] who states that pt is currently in terminal block assembler care. Pt with hx of dementia. No family present at bedside. DONNA left voice message for pt's sister, Leela, to provide update and confirm discharge plan. Awaiting call back at this time. planner intern to fax clinical info to [facility] for review. DONNA is following to assist as needed with discharge planning.
[2020-08-18 15:33] VITALS: BP 128/64
--- NOTE | 2020-08-18 18:50 | NUR ---
RECEIVED PT'S CARE AROUND 0730; PT. ON BED; RESTING WITH EYES CLOSED; EQUAL CHEST RISING NOTICED; ST ON THE MONITOR; DURING AM ASSESSMENT PT. ALERT TO PERSON; FORGETFUL THROUGH THE DAY; NO C/O PAIN; ABLE TO TURN FROM SIDE TO SIDE BY HIMSELF; AM MEDICATIONS GIVEN; HR ON THE 120s WITH EXERTION; GAURANG CASHIER ASSOCIATE NOTIFIED; NO NEW ORDERS; PER UROLOGIST PT. NEEDS TO MAINTAIN CHRISTOPHER "FOR A COUPLE OF WEEKS"; DR. BLANCAS AWARE; RECEIVED CALL FROM SON; UPDATED ABOUT PT'S HEALTH AND POC; ST. UNDERSTANDING; EDUCATED ABOUT VISITOR POLICIES; ST. WILL CHECK WITH PT'S SISTER IN ORDER TO KNOW DESIGNATOR VISITOR; ANCILLARY SERVICES MANAGER ST. UNDERSTANDING; MG LOW; PHYSICIAN NOTIFIED; ORDER RECEIVED; LOW URINE OUTPUT; PHYSICIAN NOTIFIED; ORDERS RECEIVED; ASSESSMENT CHARGED; FOLLOWING POC; WILL PASS ON REPORT;
[2020-08-18 19:46] VITALS: BP 132/80
[2020-08-19 03:51] VITALS: BP 109/65
[2020-08-19 07:14] VITALS: BP 122/72
--- NOTE | 2020-08-19 07:19 | NUR ---
RECIEVED CARE OF THIS PATIENT AT 1900. PATIENT ALERT AND ORIENTED XSELF ONLY. CONFUSED. DID NOT TALK MUCH THIS SHIFT. CHRISTOPHER PATENT. HAS SOFT COLLAR ON. C/O PAIN, MED GIVEN. SLEPT MOST OF NIGHT.
[2020-08-19 09:48] LABS: HEMOGLOBIN 8.5 gm/dL (14.0-18.0); MCHC 32.5 g/dL (28.0-37.0); MCV 101.6 fL (80.0-100.0); PLATELET COUNT 158 thou/uL (150-400); RBC 2.56 mil/uL (4.50-6.00); RDW 16.1 % (10.5-14.5); WBC 20.8 thou/uL (4.0-11.0)
[2020-08-19 10:04] LABS: CALCIUM 7.5 mg/dL (8.5-10.1); CREATININE 2.1 mg/dL (0.7-1.3); POTASSIUM 3.6 mmol/L (3.5-5.1)
[2020-08-19 11:33] VITALS: BP 121/74
[2020-08-19 13:20] LABS: ABSOLUTE NEUTROPHILS 19.6 thou/uL (1.4-8.2); ANISOCYTOSIS 1+
--- NOTE | 2020-08-19 13:22 | NUR ---
FAXED CLINICAL UPDATE TO [facility] SPOKE WITH ODALIS IN ADM SHE RECEIVED UPDATE AND WILL SUBMIT FOR AUTH FOR SKILLED STAY FOR POSS DC OVER WEEKEND. COVID TEST PENDING. IF PT DISCHARGES OVER WEEKEND FAX DC ORDERS/SUMMARY TO [facility] FAX: [phone] AND CALL TO SET UP TRANSPORT AND CALL REPORT [phone] FOR REPORT ASK FOR [facility].
[2020-08-19 15:18] VITALS: BP 118/66
--- NOTE | 2020-08-19 18:27 | NUR ---
ASSUMED CARE SHIFT CHANGE. ASSESSMENTS CHARTED.MEDS GIVEN. PT ALERT TO SELF. CONFUSED. HX DEMENTIA. VSS. DENIES PAIN. PT WORKED WITH PHYS THERAPY AND OT TOLERATING FAIR. TYLENOL GIVEN X1 FOR LOW GRADE FEVER. FOELY REMAINS IN PLACE AND DRAINING. CONTINUING POC. WILL PASS ON REPORT TO KELLI RN.
[2020-08-19 19:45] VITALS: BP 107/56
[2020-08-19 23:46] VITALS: BP 107/56
[2020-08-20 05:31] VITALS: BP 111/66
--- NOTE | 2020-08-20 05:46 | NUR ---
assumed pt care at 1900, pt is awake during assessment, alert and oriented to place and time, denies pain or sob, assessments as charted, crystal in place, draining well, sr on the monitor, no acute this shift, will continue to monitor and follow poc
[2020-08-20 05:58] LABS: HEMATOCRIT 24.7 % (42.0-52.0); HEMOGLOBIN 8.2 gm/dL (14.0-18.0); MCH 33.9 pg (26.0-34.0); MCHC 33.3 g/dL (28.0-37.0); MCV 101.8 fL (80.0-100.0); PLATELET COUNT 140 thou/uL (150-400); RBC 2.42 mil/uL (4.50-6.00); RDW 15.9 % (10.5-14.5); WBC 14.9 thou/uL (4.0-11.0)
[2020-08-20 07:22] LABS: ABSOLUTE NEUTROPHILS 12.5 thou/uL (1.4-8.2); METAMYELOCYTES 2 %; MYELOCYTES 1 %; PLATELET ESTIMATE NORMAL
[2020-08-20 08:24] VITALS: BP 107/61
[2020-08-20 09:57] LABS: CALCIUM 7.9 mg/dL (8.5-10.1); CREATININE 1.8 mg/dL (0.7-1.3); POTASSIUM 3.8 mmol/L (3.5-5.1)
[2020-08-20 11:40] VITALS: BP 132/80
[2020-08-20] MEDS ORDERED: FLOMAX0.4 MG PO (12:02)
[2020-08-20] MEDS ORDERED: METOPROLOL SUCC50 MG PO (12:02)
[2020-08-20] MEDS ORDERED: MEROPENEM500 MG IV (12:02)
--- NOTE | 2020-08-20 12:04 | NUR ---
VAT CONSULTED FOR PICC PLACEMENT. RIGHT UPPER BASILIC PICC TRIMMED 41 WITH 2CM EXTERNAL. TIP OVERLIES SVC WITH 3CG TIP CONFIRMATION. PT TOLERATED WELL. RELEASED FOR USE, PER HOSPITAL POLICY.
--- NOTE | 2020-08-20 12:53 | NUR ---
chart copy requested, bedside nurse to call report to [phone] ask for skilled rehab or pavilion. express transportation wheel chair set up for [phone]. cm tried x 2 to reach pavilion and op center liaison , no answer express tranportation unable to be here till 1600
--- NOTE | 2020-08-20 15:41 | NUR ---
PT ALERT AND ORIENTED TIMES TWO. VSS, IVF INFUSING PER ORDER. CHRISTOPHER TO DD. PT DENIES PAIN/SOA. PT TOLERATES MEDS AND MEALS. PT UP TO CHAIR FOR SOME PART OF THE SHIFT. PLANS TO DISCHARGE BACK TO ASSISTED AFTER PICC IS INSERTED. WILL CONTINUE TO MONITOR.
--- NOTE | 2020-08-22 10:35 | HC ---
[facility] [place] [address] CONSULTATION Name: HONEY MAST Room #: 201-P [facility] IN M.R.#: [id number] Admission: 08/17/20 Attend Phys: Sirisha Payne MD Discharge: 08/20/20 Date of : 44 Report #: [id number] THIS REPORT FOR: cc: Feroz Kay MD, Shyam MD Elia, Manana MD ~ DATE OF SERVICE: 08/20/2020 REASON FOR CONSULTATION: Splenic mass. REQUESTING PHYSICIAN: Dr. Payne. HISTORY OF PRESENT ILLNESS: The patient is a pleasant 79-year-old man with mild baseline dementia, who is admitted to the hospital with UTI and urosepsis. He is on antibiotics. His condition improved. He had CT of abdomen and pelvis done while in the hospital. This demonstrated possible small hyperechoic mass, ____ or possible splenic mass. Oncology consult is requested. He is a very poor historian and cannot give me good history. He does not have complaints of night sweats. Denies weight loss. Denies abdominal pain. Denies melena, constipation or diarrhea. PAST MEDICAL HISTORY: Significant for hypertension, hypercholesterolemia, ____, dementia, and BPH. PHYSICAL EXAMINATION: GENERAL: Reveals a well-developed, well-nourished man, not in acute distress. VITAL SIGNS: Blood pressure 132/80, heart rate is 82, temperature 98.5, and respirations 16. LUNGS: Clear. ABDOMEN: Soft, nontender, obese. Cannot palpate spleen. EXTREMITIES: Lower extremity, no edema. MENTAL STATUS: Confused. There is no supraclavicular lymphadenopathy. LABORATORY DATA: White count is 14.9, hemoglobin 8.2, MCV 101.8, platelets 140, neutrophils 68%, bands 16%, 7% lymphocytes, 6% monocytes. Total protein is 6.6 and albumin 2.1. Urinalysis is consistent with UTI. CT of abdomen shows small possible hypoechoic mass and ____. ASSESSMENT AND PLAN: Question of splenic mass. CT scan was done without contrast. He has chronic kidney disease. He needs to have followup scan, preferably abdominal MRI. The patient is being discharged today from the hospital. Recommend to continue follow up with Dr. Rolon for more further imaging of the spleen. Recommend to order [facility]DH and ____. [address] [address] CONSULTATION Name: HONEY MAST Room #: 201-P DIS IN M.R.#: [id number] Admission: 08/17/20 Attend Phys: Sirisha Payne MD Discharge: 08/20/20 Date of : 44 Report #: [id number] Thank you very much for allowing us to participate in care of this patient. <ELECTRONICALLY SIGNED> By: Krishna Cheema MD 08/22/20 1035 2104 20 Krishna Cheema MD /chilango
[2020-08-22 18:06] LABS: M-SPIKE Not Observed g/dL (Not Observed)
== END 2020-08-20 16:54 | DRG 871 ==
LOC: ER 10:35 → 2N 15:51 → EROBS 15:51 → 2N 15:52
PROVIDERS: Emergency Medicine; Internal Medicine Hematology & Oncology; Nurse Practitioner Adult Health; ADMIT Hospitalist; ATTEND Hospitalist
PROC: 02HV33Z Insertion of Infusion Device into Superior Vena Cava, Percutaneous Approach (ICD-10-PCS; principal; 2020-08-20)
DX: A41.50 Gram-negative sepsis, unspecified (principal); R57.1 Hypovolemic shock; N39.0 Urinary tract infection, site not specified; N17.9 Acute kidney failure, unspecified; E87.1 Hypo-osmolality and hyponatremia; Z16.12 Extended spectrum beta lactamase (ESBL) resistance; I47.1 Supraventricular tachycardia; R41.0 Disorientation, unspecified; Z20.822 Contact with and (suspected) exposure to COVID-19; E03.9 Hypothyroidism, unspecified; R33.9 Retention of urine, unspecified; F03.90 Unspecified dementia, unspecified severity, without behavioral disturbance, psychotic disturbance, mood disturbance, and anxiety; E78.5 Hyperlipidemia, unspecified; N18.30 Chronic kidney disease, stage 3 unspecified; N13.9 Obstructive and reflux uropathy, unspecified; E86.1 Hypovolemia; I12.9 Hypertensive chronic kidney disease with stage 1 through stage 4 chronic kidney disease, or unspecified chronic kidney disease; E87.8 Other disorders of electrolyte and fluid balance, not elsewhere classified; F17.210 Nicotine dependence, cigarettes, uncomplicated; F10.20 Alcohol dependence, uncomplicated; D53.9 Nutritional anemia, unspecified; E55.9 Vitamin D deficiency, unspecified; B96.1 Klebsiella pneumoniae [K. pneumoniae] as the cause of diseases classified elsewhere; Z87.81 Personal history of (healed) traumatic fracture; Z79.82 Long term (current) use of aspirin; Z79.899 Other long term (current) drug therapy
CPT/HCPCS: 10081; 27000

== ENCOUNTER 2020-08-30 17:53 | Emergency (ER) | payer OTHER, MEDICAID ==
[~2020-08-30] VITALS: Ht 170.2 cm; Wt 69.8 kg
[~2020-08-30 17:53] MED LIST changes: +MEROPENEM500 MG IV; +METOPROLOL SUCC50 MG PO
[2020-08-30 18:21] LABS: ABSOLUTE NEUTROPHILS 5.7 thou/uL (1.4-8.2); BASOPHILS 1.5 % (0.0-2.0); EOSINOPHILS 0.8 % (0.0-3.0); HEMATOCRIT 22.5 % (42.0-52.0); HEMOGLOBIN 7.6 gm/dL (14.0-18.0); LYMPHOCYTES 25.2 % (24.0-44.0); MCH 34.1 pg (26.0-34.0); MCHC 33.9 g/dL (28.0-37.0); MCV 100.7 fL (80.0-100.0); MONOCYTES 10.1 % (1.0-8.0); PLATELET COUNT 427 thou/uL (150-400); POLYS 62.4 % (36.0-66.0); RBC 2.24 mil/uL (4.50-6.00); RDW 15.7 % (10.5-14.5); WBC 9.1 thou/uL (4.0-11.0)
[2020-08-30 18:30] LABS: CALCIUM 8.2 mg/dL (8.5-10.1); CREATININE 1.1 mg/dL (0.7-1.3); POTASSIUM 3.1 mmol/L (3.5-5.1)
[2020-08-30 18:36] LABS: ALBUMIN 2.1 g/dL (3.4-5.0); TOTAL BILIRUBIN 0.5 mg/dL (0.2-1.0); TOTAL PROTEIN 6.5 g/dL (6.4-8.2)
[2020-08-30 18:41] LABS: URINE BILIRUBIN NEGATIVE (Negative); URINE BLOOD 2+ (Negative); URINE CLARITY CLEAR; URINE COLOR YELLOW; URINE GLUCOSE-RANDOM* NEGATIVE (Negative); URINE KETONES NEGATIVE (Negative); URINE NITRITE-REFLEX NEGATIVE (Negative); URINE PROTEIN (DIPSTICK) 1+ (Negative)
[2020-08-30 18:46] LABS: APTT 26.7 Seconds (24.5-32.8); PROTIME 11.1 Seconds (9.3-11.4)
[2020-08-30 18:48] LABS: URINE LEUKOCYTES-REFLEX 3+ (Negative)
[2020-08-30 18:50] LABS: CASTS None Seen /LPF (None Seen); MUCUS 4-6 Moderate strn/LPF (None Seen); SQUAMOUS None Seen /LPF (0-3)
[2020-08-30 18:51] LABS: CRYSTALS None Seen /LPF (None Seen); URINE RBC 3-10 Few /HPF (0-2); URINE WBC-REFLEX >25 Many /HPF (0-5)
[2020-08-30 21:38] VITALS: BP 140/71
== END 2020-08-30 21:38 ==
LOC: ER 17:53
PROVIDERS: Physician Assistant
DX: N39.0 Urinary tract infection, site not specified (principal); D64.9 Anemia, unspecified; E87.6 Hypokalemia; F17.210 Nicotine dependence, cigarettes, uncomplicated; E03.9 Hypothyroidism, unspecified; Z79.899 Other long term (current) drug therapy; Z79.82 Long term (current) use of aspirin

== ENCOUNTER 2020-09-29 07:49 | Inpatient (IN) | payer OTHER, MEDICAID ==
[~2020-09-29] VITALS: Ht 172.7 cm; Wt 63.5 kg
[2020-09-29 07:51] VITALS: BP 94/62
[2020-09-29] MEDS ORDERED: TYLENOL325 M1 PO (08:43)
[2020-09-29] MEDS ORDERED: ASA81BEC PO (08:43)
[2020-09-29] MEDS ORDERED: IRON325 M1 PO (08:45)
[2020-09-29] MEDS ORDERED: FOLIC ACID1 MG PO (08:45)
[2020-09-29] MEDS ORDERED: THERA-D100 MCG PO (08:45)
[2020-09-29] MEDS ORDERED: TOPROL XL50 MG PO (08:46)
[2020-09-29] MEDS ORDERED: NYSTATIN1 EA10 TOP (08:46)
[2020-09-29] MEDS ORDERED: FLOMAX0.4 MG PO (08:47)
[2020-09-29 10:16] LABS: ABSOLUTE NEUTROPHILS 11.1 thou/uL (1.4-8.2); BASOPHILS 0.7 % (0.0-2.0); EOSINOPHILS 0.2 % (0.0-3.0); HEMATOCRIT 24.8 % (42.0-52.0); HEMOGLOBIN 8.1 gm/dL (14.0-18.0); LYMPHOCYTES 19.1 % (24.0-44.0); MCH 32.3 pg (26.0-34.0); MCHC 32.8 g/dL (28.0-37.0); MCV 98.6 fL (80.0-100.0); MONOCYTES 6.5 % (1.0-8.0); PLATELET COUNT 352 thou/uL (150-400); POLYS 73.5 % (36.0-66.0); RBC 2.52 mil/uL (4.50-6.00); WBC 15.1 thou/uL (4.0-11.0)
[2020-09-29 10:23] LABS: CALCIUM 8.3 mg/dL (8.5-10.1); CREATININE 1.7 mg/dL (0.7-1.3); POTASSIUM 3.6 mmol/L (3.5-5.1)
[2020-09-29 10:30] LABS: ALBUMIN 2.4 g/dL (3.4-5.0); TOTAL BILIRUBIN 0.5 mg/dL (0.2-1.0); TOTAL PROTEIN 7.3 g/dL (6.4-8.2)
[2020-09-29 11:30] LABS: URINE BILIRUBIN NEGATIVE (Negative); URINE BLOOD 3+ (Negative); URINE CLARITY TURBID; URINE GLUCOSE-RANDOM* NEGATIVE (Negative); URINE KETONES TRACE (Negative); URINE LEUKOCYTES-REFLEX 3+ (Negative); URINE NITRITE-REFLEX NEGATIVE (Negative); URINE PROTEIN (DIPSTICK) 3+ (Negative); URINE SPECIFIC GRAVITY 1.015 (1.005-1.035); URINE UROBILINOGEN 0.2 E.U./dl (0.2-1.0)
[2020-09-29 12:06] LABS: BACTERIA-REFLEX >30 Many /HPF (None Seen); CASTS None Seen /LPF (None Seen); CRYSTALS None Seen /LPF (None Seen); SQUAMOUS None Seen /LPF (0-3); URINE WBC-REFLEX >25 Many /HPF (0-5); WBC CLUMPS Packed (None Seen)
[2020-09-29 12:07] LABS: URINE RBC 3-10 Few /HPF (0-2)
[2020-09-29 14:26] VITALS: BP 106/50
[2020-09-29 16:00] VITALS: BP 96/66
[2020-09-29 18:21] VITALS: BP 96/66
--- NOTE | 2020-09-29 18:27 | NUR ---
ASSUMED CARE OF PT FROM ER, PT WAS BROUGHT IN FROM FACILITY WITH UTI AND NEAR SEPTIC. PT IS CONFUSED AND WILL RESPOND APPROPRIATELY SOMETIMES OTHER GONZALES CONFUSED. EYES PERRLA, SKIN INTACT, INDWELLING CATH IN PLACE. URINE IS VERY CLOUDY AND YELLOW, LUNGS ARE CLEAR ALL FERRER, SKIN W/D/P, CR<3SEC, DISTAL PULSES PRESENT AND 2+ PT HAS BEEN RESTING THIS AFTERNOON AFTER ARRIVAL AT 1645. ASSESSMENT OTHERWISE UNREMARKABLE, CALL LIGHT AND OTHER NEEDS WITHIN RANGE.
[2020-09-29 19:04] VITALS: BP 122/76
--- NOTE | 2020-09-30 05:52 | NUR ---
PATIENT CALM AND COOPERATIVE WITH MEDS AND CARE. URINE IS CLEAR NO ODOR. PATIENT ASLEEP AT THIS TIME BREATHING REGULAR AND UNLABOURED.
[2020-09-30 06:29] LABS: HEMOGLOBIN 6.9 gm/dL (14.0-18.0)
[2020-09-30 06:32] LABS: ABSOLUTE NEUTROPHILS 4.5 thou/uL (1.4-8.2); BASOPHILS 1.7 % (0.0-2.0); EOSINOPHILS 1.7 % (0.0-3.0); HEMATOCRIT 20.4 % (42.0-52.0); MCH 33.4 pg (26.0-34.0); MCHC 33.6 g/dL (28.0-37.0); MCV 99.5 fL (80.0-100.0); MONOCYTES 6.8 % (1.0-8.0); PLATELET COUNT 296 thou/uL (150-400); POLYS 56.8 % (36.0-66.0); RBC 2.05 mil/uL (4.50-6.00); RDW 16.2 % (10.5-14.5)
[2020-09-30 06:39] LABS: CALCIUM 7.9 mg/dL (8.5-10.1); CREATININE 1.4 mg/dL (0.7-1.3); MAGNESIUM 1.6 mg/dL (1.8-2.4); POTASSIUM 3.9 mmol/L (3.5-5.1)
[2020-09-30 11:39] LABS: WBC 5.9 thou/uL (4.0-11.0)
[2020-09-30 11:40] LABS: MCV 99.8 fL (80.0-100.0); RBC 1.95 mil/uL (4.50-6.00)
[2020-09-30 11:44] LABS: HEMATOCRIT 19.5 % (42.0-52.0); HEMOGLOBIN 6.4 gm/dL (14.0-18.0)
--- NOTE | 2020-09-30 12:54 | NUR ---
cm completed an initial assessment. cm s/w pt's son, dionte, as pt cont to repeat "i dont know what you're saying." according to son, pt has dementia dx r/t alchohol. [facility] pt has been there for about one year, as he transferred from another facility. pt can ambulate, uses w/c. pt hasnt used hh in a long time d/t living at care facilty.
[2020-09-30 15:13] VITALS: BP 105/72; BP 106/74
[2020-09-30 17:04] LABS: CALCIUM 7.5 mg/dL (8.5-10.1); CREATININE 1.4 mg/dL (0.7-1.3); POTASSIUM 3.8 mmol/L (3.5-5.1)
[2020-09-30 20:07] VITALS: BP 94/58
--- NOTE | 2020-09-30 20:22 | NUR ---
ASSUMED CARE OF PT AT AROUND 0700 THIS MORNING. PT IS AWAKE AND ALERT WITH SOME CONFUSION. PT WAS ADMITTED FOR UTI AND SEPSUS. PT HAS BEEN FEELING TIRED A LOT. SKIN W/D/PL, EYES PERRLA, LUNGS ARE CLEAR, DISTAL PULSES PRESENT, 2+, PT HAS NO PAIN AND WANTS TO RETURN TO THE FACILITY. ASSESSMENT OTHERWISE UNREMARKABLE. CALL LIGHT AND NEEDS ARE WITHIN REACH, SCD'S IN PLAVE ON CALVES. LAB AND HCP CALLED AND STATED PT'S HGB AND HCT ARE CRITICALLY LOW AND TO SETUP PT FPR BLOOD TRANSFUSION. ASSISTED IN GETTING PT READY FOR TRANSFUSION AND MONITORED DURING THE PROCEDURE. PT PULLED IV OUT OF RIGHT ARM PRIOR TO THE INFUSION. STARTED NEW IV 20GS, RIGHT AC.
[2020-10-01 00:06] VITALS: BP 98/62
--- NOTE | 2020-10-01 03:22 | NUR ---
PT IS A/O X2 AND IS UP WITH ASSISTANCE. ROOM AIR. VSS. AFEBRILE. CHRISTOPHER IN PLACE AND WORKING APPROPRIATELY. PT DENIES C/O PAIN OR DISCOMFORT. FATIGUED THIS NOC. TRANSFUSION FINISHED AT START OF SHIFT. LABS WILL BE REDRAWN THIS AM TO RECHECK HBB. FALL PRECAUTIONS IN PLACE. PT IN ROOM NEAR NURSES STATION WITH FREQUENT CHECKS. CALL LIGHT IS WITHIN REACH. WILL CONTINUE TO MONITOR.
[2020-10-01 04:41] LABS: ABSOLUTE NEUTROPHILS 3.2 thou/uL (1.4-8.2); BASOPHILS 1.4 % (0.0-2.0); EOSINOPHILS 3.2 % (0.0-3.0); HEMATOCRIT 20.9 % (42.0-52.0); HEMOGLOBIN 7.1 gm/dL (14.0-18.0); LYMPHOCYTES 40.1 % (24.0-44.0); MCHC 34.1 g/dL (28.0-37.0); MCV 96.9 fL (80.0-100.0); MONOCYTES 7.6 % (1.0-8.0); PLATELET COUNT 294 thou/uL (150-400); POLYS 47.7 % (36.0-66.0); RBC 2.15 mil/uL (4.50-6.00); RDW 17.3 % (10.5-14.5); WBC 6.7 thou/uL (4.0-11.0)
[2020-10-01 10:25] VITALS: BP 132/72
[2020-10-01 17:05] VITALS: BP 108/66
--- NOTE | 2020-10-01 18:01 | NUR ---
Assumed pt care this am VS stable, pleasant but confused. Son at the bed side, IV removed accidentally, repplaced by IV on his left FA. Diet adn medicatons are tolerated well. FC in place draining light yellow urine. Stayed on the recliner for meals. POC followed with no signs or verbalizatiosn of distress noted. Z-guard placed on bottom.
[2020-10-01 20:00] VITALS: BP 105/68
--- NOTE | 2020-10-02 04:55 | NUR ---
Pt. rested quietly at intervals during the night when checked on during frequent rounds. He offers no complaints. Serrano catheter patent. Bed alarm is on.
[2020-10-02 08:29] VITALS: BP 134/91
[2020-10-02 12:34] LABS: HEMATOCRIT 24.7 % (42.0-52.0); HEMOGLOBIN 8.3 gm/dL (14.0-18.0); MCH 32.7 pg (26.0-34.0); MCHC 33.7 g/dL (28.0-37.0); MCV 96.8 fL (80.0-100.0); RBC 2.55 mil/uL (4.50-6.00); RDW 16.4 % (10.5-14.5); WBC 6.8 thou/uL (4.0-11.0)
[2020-10-02 12:46] LABS: CREATININE 1.2 mg/dL (0.7-1.3); MAGNESIUM 1.4 mg/dL (1.8-2.4); POTASSIUM 3.4 mmol/L (3.5-5.1)
--- NOTE | 2020-10-02 15:30 | NUR ---
Assumed pt care this am ,vs stable. Fc in place draining light yellow urine, oral intake is adequate, IV fluids dc as per MD. Incontinent of bowels as well. Pt sat on his chair for most of the am til mid afternoon for meals. Hgb currently at 8.3. POC followed witn no signs or verbalizations of distress noted. Diet and medications are well tolerated.
[2020-10-02 16:10] VITALS: BP 98/59
[2020-10-02 19:47] VITALS: BP 119/64
--- NOTE | 2020-10-03 05:14 | NUR ---
Pt. rested quietly during the night when checked on during frequent rounds. He offers no c/o pain. Incontient of stool and gigi care was given. Bed alarm is on.
[2020-10-03 05:37] LABS: HEMOGLOBIN 7.5 gm/dL (14.0-18.0); MCH 32.8 pg (26.0-34.0); MCHC 33.9 g/dL (28.0-37.0); MCV 96.8 fL (80.0-100.0); RBC 2.27 mil/uL (4.50-6.00); RDW 16.5 % (10.5-14.5); WBC 6.6 thou/uL (4.0-11.0)
[2020-10-03 05:50] LABS: CALCIUM 7.9 mg/dL (8.5-10.1); CREATININE 1.2 mg/dL (0.7-1.3); MAGNESIUM 1.9 mg/dL (1.8-2.4); POTASSIUM 3.1 mmol/L (3.5-5.1)
[2020-10-03 08:00] VITALS: BP 122/70
--- NOTE | 2020-10-03 09:28 | NUR ---
PT SLEEPING AT THIS TIME. PT DID AWAKE FOR BREAKFAST AND TOOK MEDS WITHOUT ANY ISSUES. PT DENIES ANY PAIN AT THIS TIME. PT DID DRINK 1000ML OF WATER SO FAR THIS AM. PT HAS CHRISTOPHER TO DD THAT IS PALE IN URINE COLOR. PT TALKATIVE THIS AM WITH THIS VARNISH MIXER. LBM WAS 10/03.
--- NOTE | 2020-10-03 09:28 | NUR ---
PT RECIEVED KDUR 40MEQ PO FOR LOW K+ LEVEL.
[2020-10-03 10:25] LABS: HEMATOCRIT 23.2 % (42.0-52.0); HEMOGLOBIN 7.7 gm/dL (14.0-18.0); MCH 32.2 pg (26.0-34.0); MCHC 33.2 g/dL (28.0-37.0); MCV 96.9 fL (80.0-100.0); RBC 2.39 mil/uL (4.50-6.00); RDW 16.2 % (10.5-14.5); WBC 6.7 thou/uL (4.0-11.0)
--- NOTE | 2020-10-03 10:45 | NUR ---
PT TALKED TO SON ARPIT ON THE PHONE. SON STATED THAT HE LIVES IN [place], [place]. HE WANTED AN UPDATE ON HIS CONDITION. HE STATED THAT HIS DAD DOES DRINK A LOT AND WOULD DRINK ALL DAY.
--- NOTE | 2020-10-03 12:14 | NUR ---
PHYSICAL THERAPY ASSISTED PT GETTING UP IN CHAIR.
[2020-10-03] MEDS ORDERED: MEROPENEM-1000 MG/50 IVPB (12:57)
[2020-10-03 16:20] VITALS: BP 127/78
--- NOTE | 2020-10-03 17:09 | NUR ---
PT STILL IN THE CHAIR AT THIS TIME, NO COMPLAINTS FROM PT TODAY. PT HAS BEEN IN A PLEASANT MOOD TODAY AND COMPLIENT WITH MEDS.
--- NOTE | 2020-10-03 17:19 | NUR ---
FAXED CLINICAL UPDATE TO [facility] RECEIVED CONFIRMATION AND LEFT MSG WITH LIANA IN ADM.
[2020-10-03 19:11] VITALS: BP 134/92
--- NOTE | 2020-10-04 02:07 | NUR ---
ASSUMED CARE OF PT AT SHIFT CHANGE. PT AOX2 AND NEEDS MUST BE ANTICIPATED. FALL PREAUTION IN PLACE. CHRISTOPHER IN PLACE AND IS PATENT. ABX TREATMENT CONTINUED. ASSESSMENT CHARTED. PT DOES NOT SPEAK MUCH. PT WAS ABLE TO GET COMFORTABLE AND SLEEP PART OF THE SHIFT. VSS AND NO S/S OF ACUTE DISTRESS. WILL CONTINUE TO MONITOR.
[2020-10-04 05:25] LABS: HEMATOCRIT 22.3 % (42.0-52.0); HEMOGLOBIN 7.6 gm/dL (14.0-18.0); MCH 32.8 pg (26.0-34.0); MCV 96.3 fL (80.0-100.0); RBC 2.32 mil/uL (4.50-6.00); RDW 16.3 % (10.5-14.5); WBC 7.1 thou/uL (4.0-11.0)
[2020-10-04 05:26] LABS: CALCIUM 8.2 mg/dL (8.5-10.1); CREATININE 1.1 mg/dL (0.7-1.3); MAGNESIUM 1.8 mg/dL (1.8-2.4)
[2020-10-04 05:33] LABS: POTASSIUM 4.1 mmol/L (3.5-5.1)
[2020-10-04 07:29] VITALS: BP 128/85
--- NOTE | 2020-10-04 10:53 | NUR ---
Received awake on bed. Due medications given as prescribed, able to swallow meds w/o difficulty. On room air. On telemetry; no complains and signs of chest pain, crushing sensation and heaviness. Assisted in ADLs. Vital signs stable. On regular diet- tolerating well; no nausea, no vomiting and no abdominal pain noted; assisted and encouraged in eating and drinking. With crystal in place- with hx of retention; output measured and recorded accordingly. Continent of bowels, able to use bedside commode. With SL at R FA. Falls bundle in place. No complains of pain made during assessment. Possible discharge back to facility today- a/w physician and CM. To continue monitoring patient.
[2020-10-04 14:20] VITALS: BP 138/91
--- NOTE | 2020-10-04 14:33 | NUR ---
CARE TEAM INDICATED THAT PT IS MEDICALLY STABLE TO DISCHARGE BACK T [facility] THIS DAY. PT IS TO DC WITH IV AND CHRISTOPHER. PT IS TO CONTINUE ON IV ABX UPON HIS RETURN TO FACILITY. TRANSPORT IS ARRANGED BEWTWEEN [phone]. CHART COPY ORDERED. ORDERS FAXED. CM CALLED AND LEFT VM WITH PT'S SON. NURSE GIVEN NUMBER FOR REPORT. NO OTHER CM INTERVENTION INDICATED CASE CLOSED.
== END 2020-10-04 16:40 | DRG 871 ==
LOC: ER 07:49 → 4W 14:00 → EROBS 14:00 → 4W 15:40
PROVIDERS: Emergency Medicine; Nurse Practitioner; Specialist; ADMIT Internal Medicine; ATTEND Internal Medicine
PROC: 0T9B80Z Drainage of Bladder with Drainage Device, Via Natural or Artificial Opening Endoscopic (ICD-10-PCS; principal; 2020-09-30)
PROC: 30233N1 Transfusion of Nonautologous Red Blood Cells into Peripheral Vein, Percutaneous Approach (ICD-10-PCS; principal; 2020-09-30)
DX: A41.9 Sepsis, unspecified organism (principal); N17.0 Acute kidney failure with tubular necrosis; N39.0 Urinary tract infection, site not specified; D62 Acute posthemorrhagic anemia; F17.210 Nicotine dependence, cigarettes, uncomplicated; E03.9 Hypothyroidism, unspecified; F03.90 Unspecified dementia, unspecified severity, without behavioral disturbance, psychotic disturbance, mood disturbance, and anxiety; Y83.8 Other surgical procedures as the cause of abnormal reaction of the patient, or of later complication, without mention of misadventure at the time of the procedure; Y92.89 Other specified places as the place of occurrence of the external cause; E55.9 Vitamin D deficiency, unspecified; E53.8 Deficiency of other specified B group vitamins; Z66 Do not resuscitate; N18.9 Chronic kidney disease, unspecified; R31.9 Hematuria, unspecified; R53.81 Other malaise; G47.00 Insomnia, unspecified; T83.018A Breakdown (mechanical) of other urinary catheter, initial encounter; I12.9 Hypertensive chronic kidney disease with stage 1 through stage 4 chronic kidney disease, or unspecified chronic kidney disease; N31.9 Neuromuscular dysfunction of bladder, unspecified; N40.1 Benign prostatic hyperplasia with lower urinary tract symptoms; R33.8 Other retention of urine; Z87.81 Personal history of (healed) traumatic fracture; Z79.899 Other long term (current) drug therapy
CPT/HCPCS: 10045; 51620; 57160

== ENCOUNTER 2020-12-23 08:20 | Emergency (ER) | payer OTHER, MEDICAID ==
[~2020-12-23] VITALS: Ht 172.7 cm; Wt 79.4 kg
--- NOTE | ~2020-12-23 | EMS ---
[facility] [address] [place] [address] EMS Patient Care Report Name: HONEY MAST Room #: AICHA Poole#: [id number] Admission: 12/23/20 Attend Phys: Discharge: Date of : 44 Report #: [id number] THIS REPORT FOR: //name// Report Transmitted: 12/23/2020 07:54 EMS Care Summary [facility] MED-ACT Incident [id number] @ 12/23/2020 07:37 Incident Location [address] [place] [address] Patient HONEY MAST Male, 80 Years 1940 Patient Address [address] [place] [address] Patient History Dementia,Kidney/Renal Failure,Hyperlipidemia,Urinary Tract Infection (UTI),Neurological Condition - Other,Sepsis,Alcohol Abuse,Hypothyroidism,Prostate Cancer, Patient Allergies No known allergies, Patient Medications Metoprolol, Iron, Aspirin, Tamsulosin, Folic acid, Acetaminophen, Cholecalciferol, Chief Complaint Syncope Disposition Transported No Lights/[place] Dispatch Reason Unconscious/Fainting Transported To [facility] Narrative [address] [address] EMS Patient Care Report Name: HONEY MAST Room #: REG FANY Poole#: [id number] Admission: 12/23/20 Attend Phys: Discharge: Date of : 44 Report #: [id number] Rehab staff states that the pt. was doing some walking exercises when he stated that he felt short of breath. They sat him down in a chair where he had a brief loss of consciousness (less than a minute). The pt. denies complaints after the episode. He has a hx of dementia, staff states that he is behaving normally. There were no reports of any recent illnesses. He denies chest pain, dyspnea, weakness. No other complaints noted. Arrived to find the pt. seated in a chair. He looked slightly pale. BP could not register with him in a sitting position. HR was in the 120's. Pt. was laid on the cot. First BP read in the 90's. Refer to the exam section for other physical findings. T(x)- NS 400 mL IV Outcome- BP increased without a change in HR. No other changes were noted in the pt's condition upon arrival at [facility]. Initial Vitals @08:06P: 111,BP: 108/72,SpO2: 97, @07:57P: 119,SpO2: 96,OR Suspected: false @07:55P: 121,R: 16,BP: 95/63,Pain: 0/10,GCS: 14,Temp: 97.8F,Glucose: 178,SpO2: 96,Revised Trauma: 12, Assessments @07:55MENTAL:Confused,Person Oriented,Place Oriented,SKIN:Pale,HEENT:Eyes: Left Pupil: 4-mm,Eyes: Right Pupil: 4-mm,LUNG SOUNDS:ABDOMEN:PELVIS//GI:EXTREMITIES:PULSE:NEURO:No Abnormalities, Impression Syncope / Fainting Procedures @07:5712-Lead ECGResponse: UnchangedSucceeded@07:59Saline Lock 400cc (18 ga) Site: Antecubital-RightResponse: UnchangedSucceeded Timeline 07:35,Call Received 07:35,Psap Call 07:37,Dispatched 07:37,En Route 07:45,On Scene 07:45,At Patient 07:55,BP: 95/63 M,PULSE: 121,RR: 16 R,SPO2: 96 Ox,ETCO2: ,B,PAIN: 0,GCS: 14, 07:57,12-Lead ECG,Response: UnchangedSucceeded, 07:57,BP: / M,PULSE: 119,RR: R,SPO2: 96 Ox,ETCO2: ,BG: ,PAIN: ,GCS: , [address] [address] EMS Patient Care Report Name: HONEY MAST Room #: REG FANY Poole#: [id number] Admission: 12/23/20 Attend Phys: Discharge: Date of : 44 Report #: [id number] 07:59,Saline Lock 400cc 18 ga Site: Antecubital-Right,Response: UnchangedSucceeded, 08:02,Depart Scene 08:06,BP: 108/72 M,PULSE: 111,RR: R,SPO2: 97 Ox,ETCO2: ,BG: ,PAIN: ,GCS: , 08:10,At Destination 08:37,Call Closed Disclaimer v1.1 Copyright 2021 [employer] This EMS Care Summary contains data elements from the applicable legal record (which may be displayed differently). It is designed to provide pertinent information for the following purposes: continuity of care, clinical quality, and state data reporting. The complete legal record is available to ED staff and administrators of the receiving hospital in [employer]'s Patient Tracker. All data is provided "as is."
--- NOTE | ~2020-12-23 | EMS ---
[address] [address] EMS Patient Care Report Name: HONEY MAST Room #: DEP FANY Poole#: [id number] Admission: 12/23/20 Attend Phys: Discharge: 12/23/20 Date of : 44 Report #: [id number] THIS REPORT FOR: //name// Report Transmitted: 12/26/2020 10:52 EMS Care Summary [facility] MED-ACT Incident [id number] @ 12/23/2020 07:37 Incident Location [address] [place] [address] Patient HONEY MAST Male, 80 Years 1940 Patient Address [address] [place] [address] Patient History Dementia,Kidney/Renal Failure,Hyperlipidemia,Urinary Tract Infection (UTI),Neurological Condition - Other,Sepsis,Alcohol Abuse,Hypothyroidism,Prostate Cancer, Patient Allergies No known allergies, Patient Medications Metoprolol, Iron, Aspirin, Tamsulosin, Folic acid, Acetaminophen, Cholecalciferol, Chief Complaint Syncope Disposition Transported No Lights/[place] Dispatch Reason Unconscious/Fainting Transported To [facility] Narrative [address] [address] EMS Patient Care Report Name: HONEY MAST Room #: DEP Kalli.#: [id number] Admission: 12/23/20 Attend Phys: Discharge: 12/23/20 Date of : 44 Report #: [id number] Rehab staff states that the pt. was doing some walking exercises when he stated that he felt short of breath. They sat him down in a chair where he had a brief loss of consciousness (less than a minute). The pt. denies complaints after the episode. He has a hx of dementia, staff states that he is behaving normally. There were no reports of any recent illnesses. He denies chest pain, dyspnea, weakness. No other complaints noted. Arrived to find the pt. seated in a chair. He looked slightly pale. BP could not register with him in a sitting position. HR was in the 120's. Pt. was laid on the cot. First BP read in the 90's. Refer to the exam section for other physical findings. T(x)- NS 400 mL IV Outcome- BP increased without a change in HR. No other changes were noted in the pt's condition upon arrival at [place]. Initial Vitals @08:06P: 111,BP: 108/72,SpO2: 97, @07:57P: 119,SpO2: 96,[place] Suspected: false @07:55P: 121,R: 16,BP: 95/63,Pain: 0/10,GCS: 14,Temp: 97.8F,Glucose: 178,SpO2: 96,Revised Trauma: 12, Assessments @07:55MENTAL:Confused,Person Oriented,Place Oriented,SKIN:Pale,HEENT:Eyes: Left Pupil: 4-mm,Eyes: Right Pupil: 4-mm,LUNG SOUNDS:ABDOMEN:PELVIS//GI:EXTREMITIES:PULSE:NEURO:No Abnormalities, Impression Syncope / Fainting Procedures @07:5712-Lead ECGResponse: UnchangedSucceeded@07:59Saline Lock 400cc (18 ga) Site: Antecubital-RightResponse: UnchangedSucceeded Timeline 07:35,Call Received 07:35,Psap Call 07:37,Dispatched 07:37,En Route 07:45,On Scene 07:45,At Patient 07:55,BP: 95/63 M,PULSE: 121,RR: 16 R,SPO2: 96 Ox,ETCO2: ,B,PAIN: 0,GCS: 14, 07:57,12-Lead ECG,Response: UnchangedSucceeded, 07:57,BP: / M,PULSE: 119,RR: R,SPO2: 96 Ox,ETCO2: ,BG: ,PAIN: ,GCS: , [facility] [address] [place] [address] EMS Patient Care Report Name: HONEY MAST Room #: AICHA Poole#: [id number] Admission: 12/23/20 Attend Phys: Discharge: 12/23/20 Date of : 44 Report #: [id number] 07:59,Saline Lock 400cc 18 ga Site: Antecubital-Right,Response: UnchangedSucceeded, 08:02,Depart Scene 08:06,BP: 108/72 M,PULSE: 111,RR: R,SPO2: 97 Ox,ETCO2: ,BG: ,PAIN: ,GCS: , 08:10,At Destination 08:37,Call Closed Disclaimer v1.1 Copyright 2020 [employer] This EMS Care Summary contains data elements from the applicable legal record (which may be displayed differently). It is designed to provide pertinent information for the following purposes: continuity of care, clinical quality, and state data reporting. The complete legal record is available to ED staff and administrators of the receiving hospital in [employer]'s Patient Tracker. All data is provided "as is."
[~2020-12-23 08:20] MED LIST changes: +ASA81BEC PO; +IRON325 M1 PO; +MEROPENEM-1000 MG/50 IVPB; +NYSTATIN1 EA10 TOP; +THERA-D100 MCG PO; +TOPROL XL50 MG PO; +TYLENOL325 M1 PO
[2020-12-23 08:55] LABS: ABSOLUTE NEUTROPHILS 8.8 thou/uL (1.4-8.2); BASOPHILS 0.4 % (0.0-2.0); EOSINOPHILS 0.6 % (0.0-3.0); HEMATOCRIT 28.5 % (42.0-52.0); HEMOGLOBIN 9.5 gm/dL (14.0-18.0); LYMPHOCYTES 12.3 % (24.0-44.0); MCH 33.5 pg (26.0-34.0); MCHC 33.3 g/dL (28.0-37.0); MCV 100.5 fL (80.0-100.0); MONOCYTES 10.2 % (1.0-8.0); PLATELET COUNT 338 thou/uL (150-400); POLYS 76.5 % (36.0-66.0); RBC 2.84 mil/uL (4.50-6.00); RDW 13.8 % (10.5-14.5); WBC 11.5 thou/uL (4.0-11.0)
[2020-12-23 09:01] LABS: ANION GAP 13 mmol/L (7-16); BUN 34 mg/dL (7-18); CALCIUM 8.5 mg/dL (8.5-10.1); CHLORIDE 99 mmol/L (98-107); CO2 24 mmol/L (21-32); GLUCOSE 133 mg/dL (74-106); POTASSIUM 3.8 mmol/L (3.5-5.1); SODIUM 136 mmol/L (136-145)
--- NOTE | 2020-12-23 09:11 | EKG ---
[place] [address] [address] [place] [address] ELECTROCARDIOGRAM REPORT Name: HONEY MAST [facility] [id number] Admission: 12/23/20 Attend Phys: Discharge: Date of : 44 Report #: [id number] [facility] ED Test Date: 2020-12-23 Test Time: 08:33:20 Pat Name: HONEY MAST Department: Room: Gender: M Ripsawyer: EDILBERTO : 1940 Requested By: Yaneth Zavala Order Number: [id number] MD: Mehrdad Abreu Measurements Intervals [place] Rate: 110 P: -7 IA: 119 QRS: 46 QRSD: 100 T: 7 QT: 339 QTc: 459 Interpretive Statements Sinus tachycardia Atrial premature complex Sinus pause Borderline T wave abnormalities Baseline wander in lead(s) V3 Compared to ECG 08/17/2020 17:10:48 Sinus pause or arrest now present T-wave abnormality now present Electronically Signed On 12-23-2020 9:11:37 CDT by Mehrdad Abreu [email or web address] <ELECTRONICALLY SIGNED> By: Mehrdad Abreu MD, [facility] 12/23/2011 2 2 Mehrdad Abreu MD, [facility] /EPI
[2020-12-23 09:12] LABS: ALBUMIN 2.9 g/dL (3.4-5.0); DIRECT BILIRUBIN 0.1 mg/dL (<0.1-0.2); SGOT 15 U/L (15-37); SGPT 12 U/L (30-65); TOTAL BILIRUBIN 0.5 mg/dL (0.2-1.0); TOTAL PROTEIN 7.2 g/dL (6.4-8.2); TROPONIN-I <0.06 ng/mL (<0.06)
[2020-12-23 09:47] LABS: URINE COLOR YELLOW
[2020-12-23 09:48] LABS: URINE BILIRUBIN NEGATIVE (Negative); URINE BLOOD 3+ (Negative); URINE CLARITY CLOUDY; URINE GLUCOSE-RANDOM* NEGATIVE (Negative); URINE KETONES NEGATIVE (Negative); URINE NITRITE-REFLEX NEGATIVE (Negative); URINE PROTEIN (DIPSTICK) 3+ (Negative); URINE SPECIFIC GRAVITY 1.005 (1.005-1.035)
[2020-12-23 09:49] LABS: URINE LEUKOCYTES-REFLEX 3+ (Negative); URINE UROBILINOGEN 0.2 E.U./dl (0.2-1.0)
[2020-12-23 09:52] LABS: BACTERIA-REFLEX >30 Many /HPF (None Seen); CASTS None Seen /LPF (None Seen); CRYSTALS None Seen /LPF (None Seen); SQUAMOUS 0-3 Few /LPF (0-3); URINE RBC 1-2 Rare /HPF (NONE SEEN); URINE WBC-REFLEX >25 Many /HPF (0-5)
[2020-12-23 09:53] LABS: WBC CLUMPS Packed (None Seen)
[2020-12-23] MEDS ORDERED: PROSCAR 5MG TABL5 M1 PO (10:00)
[2020-12-23] MEDS ORDERED: CEPHALEXIN500 MG PO (12:43)
[2020-12-23 15:21] VITALS: BP 132/93
== END 2020-12-23 15:23 | disposition home or self-care (01) ==
LOC: ER 08:20
PROVIDERS: Emergency Medicine
DX: R55 Syncope and collapse (principal); Z72.89 Other problems related to lifestyle; Z72.0 Tobacco use; E03.9 Hypothyroidism, unspecified; F17.210 Nicotine dependence, cigarettes, uncomplicated

== ENCOUNTER 2021-08-05 15:55 | Emergency (ER) | payer OTHER, MEDICAID ==
[~2021-08-05] VITALS: Ht 182.9 cm; Wt 69.4 kg
--- NOTE | ~2021-08-05 | EMS ---
[facility] [address] [place] [address] EMS Patient Care Report Name: HONEY MAST Room #: REG FANY Poole#: [id number] Admission: 08/05/21 Attend Phys: Discharge: Date of : 44 Report #: [id number] THIS REPORT FOR: //name// Report Transmitted: 08/05/2021 16:31 EMS Care Summary [facility] MED-ACT Incident [id number] @ 08/05/2021 15:16 Incident Location [address] [place] [address] Patient HONEY MAST Male, 80 Years 1940 Patient Address [address] [place] [address] Patient History Dementia,Kidney/Renal Failure,Hyperlipidemia,Urinary Tract Infection (UTI),Anemia,Alcohol Abuse,Hypothyroidism, Patient Allergies No known allergies, Patient Medications Iron, Acetaminophen, Nystatin, Folic acid, Finasteride, Tamsulosin, Chief Complaint difficulty breathing Disposition Transported No Lights/[place] Dispatch Reason Breathing Problem Transported To [facility] Narrative 80 YOM pt staying at [facility] for Rehab, acute onset respiratory failure. Upon arrival, pt found sitting upright in bed alert, unable to speak [facility] [address] [place] [address] EMS Patient Care Report Name: HONEY MAST Room #: REG FANY Poole#: [id number] Admission: 08/05/21 Attend Phys: Discharge: Date of : 44 Report #: [id number] between breaths, NRB in place @ 15 LPM, accompanied by staff and being assessed by [employer] medic. Pt has audible rales in all tinoco, breathing labored and tachypneic, profoundly hypotensive and hypoxic despite O2 therapy, skin cool/pale/diaphoretic. Pt transferred to cot and secured in nava's position. Pt moved to ambulance. Once there, pt placed on CPAP w/ ETCO2 NC, IV access established, 12L ECG obtained. Pt transitioned to Trio device @ 90% FiO2. Transport initiated to [facility] w/ [employer] regional intermodal truck driver and both medics providing treatment. ST depression noted in V2, V3, 15L ECG obtained with identical ST changes. Pt administered norepinephrine @ 10 mcg/min. Combo therapy pads applied. Pt declined into respiratory arrest and was no longer able to self-ventilate adequately, though he did maintain spontaneous respiratory drive. Pt laid in supine position and ventilations were assisted w/ BVM @ 25 LPM w/ in-line ETCO2 monitoring. Upon arrival, pt taken to room 12 and transferred to ED bed via sheet drag. Report to attending MD. Pt received total of 50cc of norepinephrine infusion. Initial Vitals @15:37P: 116,R: 31,EtCO2: 26,SpO2: 77, @15:48P: 117,R: 12,EtCO2: 16,SpO2: 84, @15:45P: 98,R: 14,EtCO2: 47,SpO2: 69, @15:35P: 58,R: 31,EtCO2: 25,SpO2: 50, @15:42P: 102,R: 26,EtCO2: 29,SpO2: 70,[place] Suspected: false @15:49P: 118,R: 12,BP: 51/40,GCS: 3,SpO2: 85,Revised Trauma: 6,[place] Suspected: false @15:41P: 108,R: 23,BP: 45/33,GCS: 8,EtCO2: 37,SpO2: 70,Revised Trauma: 7,[place] Suspected: false @15:39P: 109,R: 24,GCS: 8,EtCO2: 28,SpO2: 55,[place] Suspected: true @PTAP: 112,R: 20,BP: 71/43,GCS: 11,SpO2: 64,Revised Trauma: 9, Impression Respiratory Failure Procedures @15:39 12-Lead ECG Response: UnchangedSucceeded @15:26 ALS Assessment Response: UnchangedSucceeded @PTAOxygen FlowRate: 15 Device: Non Re-breather Mask (NRB) Response: UnchangedSucceeded @15:37 IV Therapy - Saline Lock 10cc (20 ga) Site: Forearm-Right Response: UnchangedSucceeded @15:44 Norepinephrine - 10 Micrograms per Minute (mcg/min) - Intravenous (IV) Response: Unchanged @15:47 Oxygen FlowRate: 25 Device: Bag Valve Mask (BVM) Response: ImprovedSucceeded @15:35 CPAP Response: UnchangedSucceeded @15:42 15-Lead ECG Response: UnchangedSucceeded [facility] [address] [place] [address] EMS Patient Care Report Name: HONEY MAST Room #: REG FANY Poole#: [id number] Admission: 08/05/21 Attend Phys: Discharge: Date of : 44 Report #: [id number] Timeline INDUSTRIAL PRODUCTION MANAGER,Oxygen FlowRate: 15 Device: Non Re-breather Mask (NRB) Response: UnchangedSucceeded, INDUSTRIAL PRODUCTION MANAGER,BP: 71/43 M,PULSE: 112,RR: 20 R,SPO2: 64 Ox,ETCO2: ,BG: ,PAIN: ,GCS: 11, 15:14,Call Received 15:14,Psap Call 15:16,Dispatched 15:17,En Route 15:22,On Scene 15:25,At Patient 15:26,ALS Assessment,Response: UnchangedSucceeded, 15:35,CPAP Response: UnchangedSucceeded, 15:35,BP: / M,PULSE: 58,RR: 31 R,SPO2: 50 Ox,ETCO2: 25 ,BG: ,PAIN: ,GCS: , 15:37,IV Therapy - Saline Lock 10cc 20 ga Site: Forearm-Right,Response: UnchangedSucceeded, 15:37,BP: / M,PULSE: 116,RR: 31 R,SPO2: 77 Ox,ETCO2: 26 ,BG: ,PAIN: ,GCS: , 15:39,12-Lead ECG,Response: UnchangedSucceeded, 15:39,BP: / M,PULSE: 109,RR: 24 R,SPO2: 55 Ox,ETCO2: 28 ,BG: ,PAIN: ,GCS: 8, 15:41,Depart Scene 15:41,BP: 45/33 M,PULSE: 108,RR: 23 R,SPO2: 70 Ox,ETCO2: 37 ,BG: ,PAIN: ,GCS: 8, 15:42,15-Lead ECG,Response: UnchangedSucceeded, 15:42,BP: / M,PULSE: 102,RR: 26 R,SPO2: 70 Ox,ETCO2: 29 ,BG: ,PAIN: ,GCS: , 15:44,Norepinephrine - 10 Micrograms per Minute (mcg/min) - Intravenous (IV),Response: Unchanged 15:45,BP: / M,PULSE: 98,RR: 14 R,SPO2: 69 Ox,ETCO2: 47 ,BG: ,PAIN: ,GCS: , 15:47,Oxygen FlowRate: 25 Device: Bag Valve Mask (BVM) Response: ImprovedSucceeded, 15:48,BP: / M,PULSE: 117,RR: 12 R,SPO2: 84 Ox,ETCO2: 16 ,BG: ,PAIN: ,GCS: , 15:49,BP: 51/40 M,PULSE: 118,RR: 12 R,SPO2: 85 Ox,ETCO2: ,BG: ,PAIN: ,GCS: 3, 15:49,At Destination 16:12,Call Closed Disclaimer v1.1 Copyright 2021 [employer] This EMS Care Summary contains data elements from the applicable legal record (which may be displayed differently). It is designed to provide pertinent information for the following purposes: continuity of care, clinical quality, and state data reporting. The complete legal record is available to ED staff and administrators of the receiving hospital in [employer]'s Patient Tracker. All data is provided "as is."
--- NOTE | ~2021-08-05 | EMS ---
[facility] [address] [place] [address] EMS Patient Care Report Name: HONEY MAST Room #: REG FANY Poole#: [id number] Admission: 08/05/21 Attend Phys: Discharge: Date of : 44 Report #: [id number] THIS REPORT FOR: //name// Report Transmitted: 08/05/2021 17:35 EMS Care Summary [facility] MED-ACT Incident [id number] @ 08/05/2021 15:16 Incident Location [address] [place] [address] Patient HONEY MAST Male, 80 Years 1940 Patient Address [address] [place] [address] Patient History Dementia,Kidney/Renal Failure,Hyperlipidemia,Urinary Tract Infection (UTI),Anemia,Alcohol Abuse,Hypothyroidism, Patient Allergies No known allergies, Patient Medications Iron, Acetaminophen, Nystatin, Folic acid, Finasteride, Tamsulosin, Chief Complaint difficulty breathing Disposition Transported No Lights/[place] Dispatch Reason Breathing Problem Transported To [facility] Narrative 80 YOM pt staying at [facility] for Rehab, acute onset respiratory failure. Upon arrival, pt found sitting upright in bed alert, unable to speak [facility] [address] [place] [address] EMS Patient Care Report Name: HONEY MAST Room #: REG FANY Poole#: [id number] Admission: 08/05/21 Attend Phys: Discharge: Date of : 44 Report #: [id number] between breaths, NRB in place @ 15 LPM, accompanied by staff and being assessed by [employer] medic. Pt has audible rales in all tinoco, breathing labored and tachypneic, profoundly hypotensive and hypoxic despite O2 therapy, skin cool/pale/diaphoretic. Pt transferred to cot and secured in nava's position. Pt moved to ambulance. Once there, pt placed on CPAP w/ ETCO2 NC, IV access established, 12L ECG obtained. Pt transitioned to Trio device @ 90% FiO2. Transport initiated to [facility] w/ FD auto parts delivery driver and both medics providing treatment. ST depression noted in V2, V3, 15L ECG obtained with identical ST changes. Pt administered norepinephrine @ 10 mcg/min. Combo therapy pads applied. Pt declined into respiratory arrest and was no longer able to self-ventilate adequately, though he did maintain spontaneous respiratory drive. Pt laid in supine position and ventilations were assisted w/ BVM @ 25 LPM w/ in-line ETCO2 monitoring. Upon arrival, pt taken to room 12 and transferred to ED bed via sheet drag. Report to attending MD. Pt received total of 50cc of norepinephrine infusion. Initial Vitals @15:37P: 116,R: 31,EtCO2: 26,SpO2: 77, @15:48P: 117,R: 12,EtCO2: 16,SpO2: 84, @15:45P: 98,R: 14,EtCO2: 47,SpO2: 69, @15:35P: 58,R: 31,EtCO2: 25,SpO2: 50, @15:42P: 102,R: 26,EtCO2: 29,SpO2: 70,[place] Suspected: false @15:49P: 118,R: 12,BP: 51/40,GCS: 3,SpO2: 85,Revised Trauma: 6,[place] Suspected: false @15:41P: 108,R: 23,BP: 45/33,GCS: 8,EtCO2: 37,SpO2: 70,Revised Trauma: 7,[place] Suspected: false @15:39P: 109,R: 24,GCS: 8,EtCO2: 28,SpO2: 55,[place] Suspected: true @PTAP: 112,R: 20,BP: 71/43,GCS: 11,SpO2: 64,Revised Trauma: 9, Impression Respiratory Failure Procedures @15:39 12-Lead ECG Response: UnchangedSucceeded @15:26 ALS Assessment Response: UnchangedSucceeded @PTAOxygen FlowRate: 15 Device: Non Re-breather Mask (NRB) Response: UnchangedSucceeded @15:37 IV Therapy - Saline Lock 10cc (20 ga) Site: Forearm-Right Response: UnchangedSucceeded @15:44 Norepinephrine - 10 Micrograms per Minute (mcg/min) - Intravenous (IV) Response: Unchanged @15:47 Oxygen FlowRate: 25 Device: Bag Valve Mask (BVM) Response: ImprovedSucceeded @15:35 CPAP Response: UnchangedSucceeded @15:42 15-Lead ECG Response: UnchangedSucceeded [facility] [address] [place] [address] EMS Patient Care Report Name: HONEY MAST Room #: REG FANY Poole#: [id number] Admission: 08/05/21 Attend Phys: Discharge: Date of : 44 Report #: [id number] Timeline STACKER STRAIGHTENER,Oxygen FlowRate: 15 Device: Non Re-breather Mask (NRB) Response: UnchangedSucceeded, STACKER STRAIGHTENER,BP: 71/43 M,PULSE: 112,RR: 20 R,SPO2: 64 Ox,ETCO2: ,BG: ,PAIN: ,GCS: 11, 15:14,Call Received 15:14,Psap Call 15:16,Dispatched 15:17,En Route 15:22,On Scene 15:25,At Patient 15:26,ALS Assessment,Response: UnchangedSucceeded, 15:35,CPAP Response: UnchangedSucceeded, 15:35,BP: / M,PULSE: 58,RR: 31 R,SPO2: 50 Ox,ETCO2: 25 ,BG: ,PAIN: ,GCS: , 15:37,IV Therapy - Saline Lock 10cc 20 ga Site: Forearm-Right,Response: UnchangedSucceeded, 15:37,BP: / M,PULSE: 116,RR: 31 R,SPO2: 77 Ox,ETCO2: 26 ,BG: ,PAIN: ,GCS: , 15:39,12-Lead ECG,Response: UnchangedSucceeded, 15:39,BP: / M,PULSE: 109,RR: 24 R,SPO2: 55 Ox,ETCO2: 28 ,BG: ,PAIN: ,GCS: 8, 15:41,Depart Scene 15:41,BP: 45/33 M,PULSE: 108,RR: 23 R,SPO2: 70 Ox,ETCO2: 37 ,BG: ,PAIN: ,GCS: 8, 15:42,15-Lead ECG,Response: UnchangedSucceeded, 15:42,BP: / M,PULSE: 102,RR: 26 R,SPO2: 70 Ox,ETCO2: 29 ,BG: ,PAIN: ,GCS: , 15:44,Norepinephrine - 10 Micrograms per Minute (mcg/min) - Intravenous (IV),Response: Unchanged 15:45,BP: / M,PULSE: 98,RR: 14 R,SPO2: 69 Ox,ETCO2: 47 ,BG: ,PAIN: ,GCS: , 15:47,Oxygen FlowRate: 25 Device: Bag Valve Mask (BVM) Response: ImprovedSucceeded, 15:48,BP: / M,PULSE: 117,RR: 12 R,SPO2: 84 Ox,ETCO2: 16 ,BG: ,PAIN: ,GCS: , 15:49,BP: 51/40 M,PULSE: 118,RR: 12 R,SPO2: 85 Ox,ETCO2: ,BG: ,PAIN: ,GCS: 3, 15:49,At Destination 16:12,Call Closed Disclaimer v1.1 Copyright 2021 [employer] This EMS Care Summary contains data elements from the applicable legal record (which may be displayed differently). It is designed to provide pertinent information for the following purposes: continuity of care, clinical quality, and state data reporting. The complete legal record is available to ED staff and administrators of the receiving hospital in [email or web address]'s Patient Tracker. All data is provided "as is."
[~2021-08-05 15:55] MED LIST changes: +CEPHALEXIN500 MG PO; +PROSCAR 5MG TABL5 M1 PO
[2021-08-05 16:34] LABS: BE(vivo) -10.9 mmol/L (-2 to +3); HCO3 17.9 mmol/L (22.0-26.0); PCO2 53.3 mmHg (35.0-45.0); PO2 71.8 mmHg (80.0-100.0); pH 7.144 (7.360-7.450); sO2 89.2 % (92.0-98.0)
[2021-08-05 17:01] LABS: HEMATOCRIT 29.5 % (42.0-52.0); HEMOGLOBIN 9.3 gm/dL (14.0-18.0); MCH 31.9 pg (26.0-34.0); MCHC 31.6 g/dL (28.0-37.0); PLATELET COUNT 586 thou/uL (150-400); RBC 2.92 mil/uL (4.50-6.00); RDW 16.3 % (10.5-14.5); WBC 28.6 thou/uL (4.0-11.0)
[2021-08-05 17:39] LABS: CALCIUM 8.3 mg/dL (8.5-10.1); CREATININE 2.4 mg/dL (0.7-1.3); MAGNESIUM 2.2 mg/dL (1.8-2.4); POTASSIUM 3.5 mmol/L (3.5-5.1); TOTAL BILIRUBIN 0.5 mg/dL (0.2-1.0); TOTAL PROTEIN 6.8 g/dL (6.4-8.2)
[2021-08-05 17:51] LABS: ABSOLUTE NEUTROPHILS 24.9 thou/uL (1.4-8.2)
[2021-08-05 21:01] VITALS: BP 00/00
--- NOTE | 2021-08-07 08:10 | EKG ---
[facility] [place] [address] ELECTROCARDIOGRAM REPORT Name: HONEY MAST Room #: DEP Zulema#: [id number] Admission: 08/05/21 Attend Phys: Discharge: 08/05/21 Date of : 44 Report #: [id number] [facility] ED Test Date: 2021-08-05 Test Time: 16:06:56 Pat Name: HONEY MAST Department: Room: Gender: M Reception Manager: CECELIA : 1940 Requested By: Brett Bhatt Order Number: [id number] MD: Lukas Pearson Measurements Intervals [place] Rate: 140 P: 50 KS: 125 QRS: 46 QRSD: 100 T: 220 QT: 285 QTc: 435 Interpretive Statements Sinus tachycardia Abnormal R-wave progression, early transition Repolarization abnormality, ST segment abnormality Compared to ECG 12/23/2020 08:33:20 Ventricular premature complex(es) no longer present ST segment abnormality is more pronounced Early R wave progression is now present Electronically Signed On 08-07-2021 8:09:59 ASSET PROTECTION SPECIALIST by Lukas Pearson [email or web address] <ELECTRONICALLY SIGNED> By: Lukas Pearson MD, [facility] 08/07/21 0809 [id number] Lukas Pearson MD, [facility] /EPI
== END 2021-08-05 18:32 ==
LOC: ER 15:55
PROVIDERS: Emergency Medicine
DX: J96.01 Acute respiratory failure with hypoxia (principal); Z20.822 Contact with and (suspected) exposure to COVID-19; N28.9 Disorder of kidney and ureter, unspecified; R65.20 Severe sepsis without septic shock; E03.9 Hypothyroidism, unspecified; E78.5 Hyperlipidemia, unspecified; F02.80 Dementia in other diseases classified elsewhere, unspecified severity, without behavioral disturbance, psychotic disturbance, mood disturbance, and anxiety; F10.10 Alcohol abuse, uncomplicated; F17.210 Nicotine dependence, cigarettes, uncomplicated; Z79.899 Other long term (current) drug therapy